=== PATIENT | male | born 1950 | race Caucasian/White ===

== ENCOUNTER 2017-11-06 17:51 | Emergency (ER) | payer MEDICARE ==
[2017-11-06] MEDS ORDERED: Sodium Chloride 0.9% 1000 ML 1,000 ML IV STA ×3 (18:14→20:47)
--- NOTE | 2017-11-06 18:18 | ERPHSYRPT ---
- History of Present Illness Historian: patient Exam Limitations: no limitations Patient Subjective Stated Complaint: pt co headache,nauea, loose stools for a couple days,and abd pain to lower abd. no fever Triage Nursing Assessment: pt alert, walked in, resp easy, skin w/d/p. abd tender to palpate, abd large and distended which pt states is normal for him Timing/Duration: day(s) (2 days) Activities at Onset: none Quality: cramping Abdominal Pain Onset Location: suprapubic Pain Radiation: no radiation Severity of Pain-Max: moderate Severity of Pain-Current: mild Associated Symptoms: diarrhea, headache, nausea, No back, No chest pain, No diaphoresis, No fever/chills, No fatigue, No heartburn, No loss of appetite, No neck pain, No rash, No shortness of breath, No syncope, No testicular pain, No vomiting Previous symptoms: no prior history Hx Tetanus, Diphtheria Vaccination/Date Given: No Hx Influenza Vaccination/Date Given: No Hx Pneumococcal Vaccination/Date Given: No Immunizations Up to Date: Yes <JOSÉ ANTONIO NORTON - Last Filed: 11/06/17 19:36> <SUNIL LOMELI - Last Filed: 11/06/17 23:25> - History of Present Illness Time Seen by Provider: 11/06/17 18:11 Physician History: 67-year-old white male arrives with complaint of lower abdominal pain loose stools nausea symptoms since 2 days Past medical history includes hyperlipidemia high blood pressure. Past surgical history includes hernia repair. (JOSÉ ANTONIO NORTON) Allergies/Adverse Reactions: No Known Drug Allergies Allergy (Verified 11/06/17 18:07) Home Medications: Valsartan/Hydrochlorothiazide [Diovan Hct 160-12.5 mg Tab] 1 ea DAILY 11/06/17 [ History] - Review of Systems Constitutional: No Fever, No Chills Eyes: No Symptoms Ears, Nose, & Throat: No Symptoms Respiratory: No Cough, No Dyspnea Cardiac: No Chest Pain, No Edema, No Syncope Abdominal/Gastrointestinal: Abdominal Pain, Nausea, Diarrhea, No Vomiting, No Constipation, No Hematemesis, No Hematochezia, No Melena, No Dysphagia, No Appetite Changes Genitourinary Symptoms: No Dysuria Musculoskeletal: No Back Pain, No Neck Pain Skin: No Rash Neurological: No Dizziness, No Focal Weakness, No Sensory Changes Psychological: No Symptoms Endocrine: No Symptoms All Other Systems: Reviewed and Negative <JOSÉ ANTONIO NORTON - Last Filed: 11/06/17 19:36> - Past Medical History Pertinent Past Medical History: Yes Neurological History: No Pertinent History ENT History: No Pertinent History Cardiac History: High Cholesterol, Hypertension Respiratory History: No Pertinent History Endocrine Medical History: No Pertinent History Musculoskeletal History: No Pertinent History GI Medical History: No Pertinent History History: No Pertinent History Psycho-Social History: No Pertinent History Male Reproductive Disorders: No Pertinent History - Past Surgical History Past Surgical History: Yes Neuro Surgical History: No Pertinent History Respiratory: No Pertinent History Gastrointestinal: Hernia Repair Male Surgical History: No Pertinent History - Social History Smoking Status: Former smoker Exposure to second hand smoke: No Drug Use: none Patient Lives Alone: No <ERROLJOSÉ ANTONIO MARIUSZ - Maurice Filed: 11/06/17 19:36> - Physical Exam General Appearance: no apparent distress, alert Eye Exam: PERRL/EOMI, eyes nml inspection Ears, Nose, Throat Exam: normal ENT inspection, pharynx normal, moist mucous membranes Neck Exam: normal inspection, non-tender, supple, full range of motion Respiratory Exam: normal breath sounds, lungs clear, No respiratory distress Cardiovascular Exam: regular rate/rhythm, normal heart sounds Gastrointestinal/Abdomen Exam: soft, normal bowel sounds, No tenderness, No mass Rectal Exam: normal exam Back Exam: normal inspection, normal range of motion, No CVA tenderness, No vertebral tenderness Extremity Exam: normal inspection, normal range of motion, pelvis stable Neurologic Exam: alert, oriented x 3, cooperative, 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, normal mood/affect, nml cerebellar function, sensation nml, No motor deficits Skin Exam: normal color, warm, dry SpO2 Interpretation: normal (92%) SpO2: 92 <JOSÉ ANTONIO NORTON - Filed: 11/06/17 19:36> - Nursing Vital Signs Nursing Vital Signs: Initial Vital Signs Temperature 100.3 F 11/06/17 18:01 Pulse Rate 100 H 11/06/17 18:01 Respiratory Rate 18 11/06/17 18:01 Blood Pressure 130/82 11/06/17 18:01 O2 Sat by Pulse Oximetry 92 L 11/06/17 18:01 Pain Scale Pain Intensity 3 - Course Nursing assessment & vital signs reviewed: Yes EKG Interpreted by Me: RATE (119 bpm), Sinus Tach, NORMAL AXIS, Other (EKG: Sinus tachycardia 119 beats per minute min normal axis complete right bundle block, no acute ST or T wave changes no old EKG for comparison) <JOSÉ ANTONIO NORTON - Last Filed: 11/06/17 19:36> Ordered Tests: Active Orders 24 hr Category Date Time Status EKG-ER Only STAT Care 11/06/17 18:18 Active IV Insertion STAT Care 11/06/17 18:14 Active ABDOMEN AND PELVIS W/0 CONTRAS [CT] Stat Exams 11/06/17 20:00 Taken CHEST 2 VIEWS (PA AND LAT) Stat Exams 11/06/17 20:47 Taken HEAD WITHOUT CONTRAST [CT] Stat Exams 11/06/17 20:47 Taken AMYLASE Stat Lab 11/06/17 18:15 Completed BNP [NT PRO BNP] Stat Lab 11/06/17 18:15 Completed CBC W DIFF Stat Lab 11/06/17 18:15 Completed CMP Stat Lab 11/06/17 18:15 Completed LIPASE Stat Lab 11/06/17 18:15 Completed Lactic Acid Stat Lab 11/06/17 18:30 Completed Occult Blood,Stool Other Stat Lab 11/06/17 19:30 Completed TROPONIN Q3H Lab 11/06/17 20:00 Completed TROPONIN Q3H Lab 11/06/17 23:15 Received UA W/RFX UR CULTURE Stat Lab 11/06/17 19:30 Uncollected Medication Summary Generic Name Dose Route Start Last Admin Trade Name Freq PRN Reason Stop Dose Admin Levofloxacin/Dextrose 750 mg in 150 mls @ 100 mls/hr 11/06/17 22:09 11/06/17 22:58 Levofloxacin 750mg/150ml D5w IV 11/06/17 23:38 100 mls/hr STAT STA Administration Discontinued Medications Generic Name Dose Route Start Last Admin Trade Name Freq PRN Reason Stop Dose Admin Acetaminophen 1,000 mg 11/06/17 20:01 11/06/17 20:13 Tylenol Extra Strength 500 Mg PO 11/06/17 20:02 1,000 mg STAT STA Administration Acetaminophen Confirm 11/06/17 20:10 Tylenol Extra Strength 500 Mg Administered 11/06/17 20:11 Dose 1,000 mg .ROUTE .STK-MED ONE Aspirin 325 mg 11/07/17 10:00 Ecotrin 325 Mg PO 11/07/17 10:01 ONCE ONE Aspirin 324 mg 11/06/17 22:10 11/06/17 22:12 Baby Aspirin 81 Mg Chew PO 11/06/17 22:11 324 mg STAT ONE Administration Sodium Chloride 1,000 mls @ 999 mls/hr 11/06/17 18:14 11/06/17 19:47 Sodium Chloride 0.9% 1000 Ml IV 11/06/17 19:14 Infused .Q1H1M STA Infusion Sodium Chloride 1,000 mls @ 999 mls/hr 11/06/17 18:16 11/06/17 22:23 Sodium Chloride 0.9% 1000 Ml IV 11/06/17 19:16 Infused .Q1H1M STA Infusion Sodium Chloride Confirm 11/06/17 18:22 Sodium Chloride 0.9% 1000 Ml Administered 11/06/17 18:23 Dose 1,000 mls @ ud .ROUTE .STK-MED ONE Sodium Chloride Confirm 11/06/17 19:12 Sodium Chloride 0.9% 1000 Ml Administered 11/06/17 19:13 Dose 1,000 mls @ ud .ROUTE .STK-MED ONE Sodium Chloride 1,000 mls @ 999 mls/hr 11/06/17 20:47 11/06/17 22:48 Sodium Chloride 0.9% 1000 Ml IV 11/06/17 21:47 999 mls/hr .Q1H1M STA Administration Sodium Chloride Confirm 11/06/17 21:22 Sodium Chloride 0.9% 1000 Ml Administered 11/06/17 21:23 Dose 1,000 mls @ ud .ROUTE .STK-MED ONE Metronidazole 500 mg in 100 mls @ 200 mls/hr 11/06/17 22:09 11/06/17 22:15 Flagyl 500 Mg Ivpb IV 11/06/17 22:38 200 mls/hr STAT STA Administration Metronidazole Confirm 11/06/17 22:14 Flagyl 500 Mg Ivpb Administered 11/06/17 22:15 Dose 500 mg in 100 mls @ ud IV .STK-MED ONE Levofloxacin/Dextrose Confirm 11/06/17 22:54 Levofloxacin 750mg/150ml D5w Administered 11/06/17 22:55 Dose 750 mg in 150 mls @ ud IV .STK-MED ONE Ondansetron HCl 4 mg 11/06/17 20:00 11/06/17 20:03 Zofran 4 Mg/2 Ml Vial IV 11/06/17 20:01 4 mg STAT ONE Administration Ondansetron HCl Confirm 11/06/17 20:02 Zofran 4 Mg/2 Ml Vial Administered 11/06/17 20:03 Dose 4 mg .ROUTE .STK-MED ONE Potassium Bicarbonate 50 meq 11/06/17 19:40 11/06/17 19:57 K-Lyte 25 Meq PO 11/06/17 19:41 50 meq STAT ONE Administration Potassium Bicarbonate Confirm 11/06/17 19:54 K-Lyte 25 Meq Administered 11/06/17 19:55 Dose 50 meq .ROUTE .STK-MED ONE Potassium Chloride Confirm 11/06/17 19:51 Klor Con 10 Meq Administered 11/06/17 19:52 Dose 50 meq PO .STK-MED ONE Lab/Rad Data: Laboratory Result Diagrams 11/06/17 18:15 11/06/17 18:15 Laboratory Results 11/06/17 11/06/17 11/06/17 Range/Units 20:00 19:30 18:30 WBC (4.0-10.5) K/mm3 RBC (4.1-5.6) M/mm3 Hgb (12.5-18.0) gm/dl Hct (42-50) % MCV (78-100) fl MCH (26-32) pg MCHC (32-36) g/dl RDW (11.5-14.0) % Plt Count (150-450) K/mm3 MPV (6-9.5) fl Gran % (36.0-66.0) % Eos # (Auto) (0-0.5) Absolute Lymphs (auto) (1.0-4.6) Absolute Monos (auto) (0.0-1.3) Lymphocytes % (24.0-44.0) % Monocytes % (0.0-12.0) % Eosinophils % (0.00-5.0) % Basophils % (0.0-0.4) % Absolute Granulocytes (1.4-6.9) Basophils # (0-0.4) Sodium (137-145) mmol/L Potassium (3.5-5.1) mmol/L Chloride (98-107) mmol/L Carbon Dioxide (22-30) mmol/L Anion Gap (5-15) MEQ/L BUN (9-20) mg/dL Creatinine (0.66-1.25) mg/dL Estimated GFR ML/MIN Glucose (74-106) mg/dL Lactic Acid 1.3 (0.4-2.0) Calcium (8.4-10.2) mg/dL Total Bilirubin (0.2-1.3) mg/dL AST (17-59) U/L ALT (0-50) U/L Alkaline Phosphatase (38-126) U/L Troponin I 0.039 H* (0.000-0.034) ng/mL NT-Pro-B Natriuret Pep (0-900) pg/mL Serum Total Protein (6.3-8.2) g/dL Albumin (3.5-5.0) g/dL Amylase (30-110) U/L Lipase (23-300) U/L Stool Occult Blood NEGATIVE (Negative) 11/06/17 11/06/17 11/06/17 Range/Units 18:15 18:15 18:15 WBC 11.5 H (4.0-10.5) K/mm3 RBC 5.08 (4.1-5.6) M/mm3 Hgb 16.0 (12.5-18.0) gm/dl Hct 46.6 (42-50) % MCV 91.7 (78-100) fl MCH 31.5 (26-32) pg MCHC 34.3 (32-36) g/dl RDW 14.9 H (11.5-14.0) % Plt Count 196 (150-450) K/mm3 MPV 10.0 H (6-9.5) fl Gran % 84.4 H (36.0-66.0) % Eos # (Auto) 0.01 (0-0.5) Absolute Lymphs (auto) 1.00 (1.0-4.6) Absolute Monos (auto) 0.76 (0.0-1.3) Lymphocytes % 8.7 L (24.0-44.0) % Monocytes % 6.6 (0.0-12.0) % Eosinophils % 0.1 (0.00-5.0) % Basophils % 0.2 (0.0-0.4) % Absolute Granulocytes 9.67 H (1.4-6.9) Basophils # 0.02 (0-0.4) Sodium 139 (137-145) mmol/L Potassium 3.1 L (3.5-5.1) mmol/L Chloride 100 (98-107) mmol/L Carbon Dioxide 26 (22-30) mmol/L Anion Gap 16.5 H (5-15) MEQ/L BUN 33 H (9-20) mg/dL Creatinine 1.95 H (0.66-1.25) mg/dL Estimated GFR 36.4 ML/MIN Glucose 136 H (74-106) mg/dL Lactic Acid (0.4-2.0) Calcium 8.3 L (8.4-10.2) mg/dL Total Bilirubin 1.30 (0.2-1.3) mg/dL AST 20 (17-59) U/L ALT 17 (0-50) U/L Alkaline Phosphatase 107 (38-126) U/L Troponin I (0.000-0.034) ng/mL NT-Pro-B Natriuret Pep 605 (0-900) pg/mL Serum Total Protein 7.1 (6.3-8.2) g/dL Albumin 4.1 (3.5-5.0) g/dL Amylase < 30 L (30-110) U/L Lipase 11 L (23-300) U/L Stool Occult Blood (Negative) - Progress Progress: improved <JOSÉ ANTONIO NORTON - Last Filed: 11/06/17 19:36> <SUNIL LOMELI - Last Filed: 11/06/17 23:25> - Progress Progress Note: 11/06/17 19:34 67-year-old white male arrives with complaint of loose stools for 3 days states he's had a headache for several months states she's had some nausea. states she's been giving the patient Imodium. Patient really nontender on palpation. Patient was EKG that shows sinus tachycardia 119 beats per minute normal axis complete right bundle-branch block no acute ST or T wave changes noted no old EKGs for comparison's. Patient's vitals are stable patient is noted to have a potassium of 3.1 amylase and lipase are within normal limits white count is 11.5 hemoglobin 16 hematocrit 46.6 Patient's states he's had some red stool I did a rectal exam he has no obvious blood occult has been sent 2 L of normal saline IV have been ordered he is receive the first liter. Will order 50 mEq of potassium orally. Because of shift change Dr. Lomeli will be assuming care of this patient I have discussed this with him. (JOSÉ ANTONIO NORTON) 11/06/17 22:50 After re-evaluation, patient admits to having mid abdominal pain and has had 2 episodes of diarrhea while in the ER. Pt also admits to headache but denies any chest pain or shortness of breath. Pt also has been having SBP in the 90's after receiving 2 liters of NS fluids. The CT scan abd/pelvis shows an acute diverticulitis and the CT scan head shows a left frontal sinusitis. The troponin is slightly elevated at 0.039 and the patient has a RBBB. Pt was given ASA 324mg and will be started on levaquin and flagyl for the diverticulitis. Pt will require admission for elevated troponin and diverticulitis. 11/06/17 23:[address] Yao who prefers that the patient is transferred to [place]. The family and patient want him transferred to [facility]. 11/06/17 23:24 Pt has been accepted with Dr Headley at [facility]. (SUNIL LOMELI) <JOSÉ ANTONIO NORTON - Last Filed: 11/06/17 19:36> - Departure Time of Disposition: 23:24 Departure Disposition: Transfer Critical Care Time: Yes Critical Care Time(excluding separately billable procedures): 75-104 minutes <SUNIL LOMELI - Last Filed: 11/06/17 23:25> - Departure Clinical Impression: Elevated troponin, Diverticulitis Sinusitis Qualifiers: Sinusitis location: frontal Chronicity: acute Recurrence: non-recurrent Qualified Code(s): J01.10 - Acute frontal sinusitis, unspecified Condition: Fair Referrals: BREEZY MEJIA MD [Primary Care Provider] -
[2017-11-06] MEDS ORDERED: Sodium Chloride 0.9% 1000 ML 1,000 ML ONE ×3 (18:22→21:22)
[2017-11-06 18:42] LABS: BASOPHIL % 0.2 % (0.0-0.4); Basophil (Absolute #) 0.02 (0-0.4); Eosinophil % 0.1 % (0.00-5.0); Eosinophil (Absolute #) 0.01 (0-0.5); Granulocyte Absolute (ANC) 9.67 (1.4-6.9); Granulocytes % 84.4 % (36.0-66.0); Hematocrit 46.6 % (42-50); Lymphocytes % 8.7 % (24.0-44.0); Mean Cell Volume 91.7 fl (78-100); Mean Corpuscular Hemoglobin 31.5 pg (26-32); Mean Corpuscular Hgb Concent. 34.3 g/dl (32-36); Monocyte (Absolute #) 0.76 (0.0-1.3); Monocytes % 6.6 % (0.0-12.0); Platelet Count 196 K/mm3 (150-450); Red Blood Count 5.08 M/mm3 (4.1-5.6); Red Cell Distribution Width 14.9 % (11.5-14.0); White Blood Count 11.5 K/mm3 (4.0-10.5)
[2017-11-06 18:59] LABS: ALBUMIN 4.1 g/dL (3.5-5.0); ALKALINE PHOSPHATASE 107 U/L (38-126); AMYLASE < 30 U/L (30-110); ANION GAP 16.5 MEQ/L (5-15); BLOOD UREA NITROGEN 33 mg/dL (9-20); CHLORIDE 100 mmol/L (98-107); Calcium 8.3 mg/dL (8.4-10.2); Carbon Dioxide 26 mmol/L (22-30); Creatinine 1 1.95 mg/dL (0.66-1.25); Glucose 136 mg/dL (74-106); LIPASE 11 U/L (23-300); Potassium 3.1 mmol/L (3.5-5.1); SGOT/AST 20 U/L (17-59); SGPT/ALT 17 U/L (0-50); SODIUM 139 mmol/L (137-145); Total Protein 7.1 g/dL (6.3-8.2)
[2017-11-06] MEDS ORDERED: K-LYTE 25 MEQ PO ONE (19:40)
[2017-11-06] MEDS ORDERED: Klor Con 10 MEQ PO ONE (19:51)
[2017-11-06] MEDS ORDERED: K-LYTE 25 MEQ ONE (19:54)
[2017-11-06] MEDS ORDERED: Zofran 4 MG/2 ML VIAL IV ONE (20:00)
[2017-11-06] MEDS ORDERED: TYLENOL EXTRA STRENGTH 500 MG PO STA (20:01)
[2017-11-06] MEDS ORDERED: Zofran 4 MG/2 ML VIAL ONE (20:02)
[2017-11-06] MEDS ORDERED: TYLENOL EXTRA STRENGTH 500 MG ONE (20:10)
[2017-11-06] MEDS ORDERED: LEVOFLOXACIN 750MG/150ML D5W 750 MG/150 ML BAG IV STA (22:09)
[2017-11-06] MEDS ORDERED: FLAGYL 500 MG IVPB 500 MG/100 ML BAG IV STA (22:09)
[2017-11-06] MEDS ORDERED: BABY ASPIRIN 81 MG CHEW PO ONE (22:10)
[2017-11-06] MEDS ORDERED: FLAGYL 500 MG IVPB 500 MG/100 ML BAG IV ONE (22:14)
[2017-11-06 22:45] VITALS: O2SAT 97
[2017-11-06] MEDS ORDERED: LEVOFLOXACIN 750MG/150ML D5W 750 MG/150 ML BAG IV ONE (22:54)
[2017-11-06 22:55] VITALS: PULSE 97
[2017-11-07] MEDS ORDERED: Sodium Chloride 0.9% 1000 ML 1,000 ML ONE (00:07)
[2017-11-07 00:08] LABS: 027 TOX PROD PRESUMPTIVE NEGATIVE (NEGATIVE); TOXIGENIC C. DIFF ORG NEGATIVE (NEGATIVE)
[2017-11-07] MEDS ORDERED: Sodium Chloride 0.9% 1000 ML 1,000 ML IV STA (00:11)
[2017-11-07 00:24] VITALS: BP 82/58
[2017-11-07] MEDS ORDERED: BABY ASPIRIN 81 MG CHEW ONE (06:20)
[2017-11-07] MEDS ORDERED: Ecotrin 325 MG PO ONE (10:00)
--- NOTE | 2017-11-07 11:50 | XRAY ---
Exam: Two-view chest from 11/06/2017. Comparison: None. Indication: 67-year-old male with low oxygen saturation. Findings: Upright PA and lateral chest films are submitted for evaluation. There is mild hyperinflation of the lungs with some flattening of the hemidiaphragms. The transverse heart size appears normal. There is mild tortuosity of the thoracic aorta. The remainder of the kam and mediastinal structures is unremarkable. Curvilinear focal discoid atelectasis or scarring is seen at the lateral right lung base. There is also minimal pleural reaction within the lateral aspect of the minor fissure on the right. There is a suggestion of 3 small calcified granulomas within the peripheral right upper lung field. The right costophrenic angle is blunted, perhaps due to pleural thickening and scarring. No acute infiltrates, central vascular congestion, pneumothorax, or pleural fluid is seen. Mild biapical pleural thickening is seen. Mild lower thoracic spondylosis is evident. Impression: 1. There is mild hyperinflation of the lungs with some flattening of the hemidiaphragms on the lateral radiograph. Correlate clinically regarding COPD. 2. Chronic changes are seen within the right lung, as discussed above. No acute cardiopulmonary disease is seen.
--- NOTE | 2017-11-07 12:21 | XRAY ---
Exam: CT of the head without IV contrast from 11/06/2017. CTDI: 70.48 Comparison: None. Indication: 67-year-old male with pain/headache. Elevated white blood cell count. Technique: Non-IV contrast axial images were obtained through the brain. Reconstructed coronal and sagittal images were created and reviewed. Findings: The ventricles appear of normal size. No focal mass effect or midline shift is seen. There is no acute intracranial bleed or abnormal extra-axial fluid collection. Subtle bilateral periventricular and subcortical white matter changes are seen, likely due to chronic microvascular changes in this 67-year-old patient. I see no low attenuation lesion to suggest an acute or subacute territorial infarct. Mild vascular calcification is seen within the internal carotid arteries within the carotid siphons. The cortical sulci and basilar cisterns appear unremarkable. The calvarium of the skull appears intact. There is a small spur pointing toward the left within the posterior nasal septum. The posterior aspect of the nasal septum is mildly deviated toward the left. I note some bubbly soft tissue or fluid density within the left frontal sinus and frontal-ethmoid recess. Consider sinusitis. Mild scattered mucosal thickening is also seen within the ethmoid sinuses. There is scant mucosal thickening at the lateral margin and posterior margin of the right maxillary sinus on image #1. The mastoid air cells appear clear. Impression: 1. No acute intracranial bleed or other acute intracranial process is seen. 2. There is some focal bubbly soft tissue/fluid density within the left frontal sinus and left frontal-ethmoid recess which might represent acute sinusitis. Correlate clinically. I also note some scattered mucosal thickening within ethmoid sinus complex bilaterally. No other air-fluid levels are seen.
== END 2017-11-07 00:18 | disposition short-term general hospital (02) ==
LOC: ED 17:51
DX: R77.8 Other specified abnormalities of plasma proteins (principal); K57.92 Diverticulitis of intestine, part unspecified, without perforation or abscess without bleeding; R51 Headache; R19.7 Diarrhea, unspecified; J01.10 Acute frontal sinusitis, unspecified; R10.9 Unspecified abdominal pain; I45.10 Unspecified right bundle-branch block
CPT/HCPCS: 36000; 36415; 70450; 71046; 74176; 80053; 82150; 82272; 83605; 83690; 83880; 84484; 85025; 87493; 93005; 96360; 96361; 96365; 96367; 96374; 99285; J1956; J2405; A9270-GY

== ENCOUNTER 2021-03-19 14:57 | Inpatient (IN) | payer MEDICARE ==
[2021-03-19] MEDS ORDERED: Zofran 4 MG/2 ML VIAL IV ONE (15:36)
[2021-03-19] MEDS ORDERED: MORPHINE SULFATE 4 MG INJ IV ONE (15:36)
[2021-03-19] MEDS ORDERED: Zofran 4 MG/2 ML VIAL ONE (15:40)
[2021-03-19] MEDS ORDERED: MORPHINE SULFATE 4 MG INJ ONE (15:41)
[2021-03-19] MEDS ORDERED: Sodium Chloride 0.9% 1000 ML 1,000 ML ONE (15:41)
[2021-03-19] MEDS ORDERED: Sodium Chloride 0.9% 1000 ML 1,000 ML IV SCH (15:45)
[2021-03-19 15:48] LABS: Absolute Neutrophil Ct (ANC) 11.81 (1.4-6.9); BASOPHIL % 0.1 % (0.0-0.4); Basophil (Absolute #) 0.02 (0-0.4); Eosinophil % 0.1 % (0.00-5.0); Eosinophil (Absolute #) 0.01 (0-0.5); Hematocrit 53.6 % (42-50); Hemoglobin 17.1 gm/dl (12.5-18.0); Lymphocyte (Absolute #) 1.82 (1.0-4.6); Lymphocytes % 12.2 % (24.0-44.0); Mean Cell Volume 94.9 fl (78-100); Mean Corpuscular Hemoglobin 30.3 pg (26-32); Mean Corpuscular Hgb Concent. 31.9 g/dl (32-36); Monocyte (Absolute #) 1.26 (0.0-1.3); Monocytes % 8.4 % (0.0-12.0); Neutrophil % 79.2 % (36.0-66.0); Platelet Count 302 K/mm3 (150-450); Red Blood Count 5.65 M/mm3 (4.1-5.6); Red Cell Distribution Width 14.9 % (11.5-14.0); White Blood Count 14.9 K/mm3 (4.0-10.5)
[2021-03-19 16:05] LABS: ALBUMIN 4.8 g/dL (3.5-5.0); ALKALINE PHOSPHATASE 123 U/L (38-126); BLOOD UREA NITROGEN 25 mg/dL (9-20); CHLORIDE 97 mmol/L (98-107); Calcium 9.7 mg/dL (8.4-10.2); Carbon Dioxide 34 mmol/L (22-30); Creatinine 1 1.14 mg/dL (0.66-1.25); EST GLOMERULAR FILTRATION RATE > 60.0 ML/MIN; Glucose 135 mg/dL (74-106); LIPASE 41 U/L (23-300); Potassium 4.2 mmol/L (3.5-5.1); SGOT/AST 32 U/L (17-59); SGPT/ALT 32 U/L (0-50); SODIUM 140 mmol/L (137-145); Total Protein 8.4 g/dL (6.3-8.2)
--- NOTE | 2021-03-19 16:11 | ERPHSYRPT ---
- History of Present Illness Time Seen by Provider: 03/19/21 14:58 Historian: patient Exam Limitations: no limitations Patient Subjective Stated Complaint: pt here for abd pain and vomiting since last night, pt has hx of diverticulitis, Triage Nursing Assessment: pt alert, resp easy, skin w/d/p, face mask in place, abd large and distended , able to undress self Physician History: 70 years old male with a history of hypertension, hyperlipidemia, diverticulitis presented in the ER with abdominal distention and pain since yesterday moderate intensity, dull aching to sharp, more with palpation and movements and no sig nificant relieving factors. Reports associated nausea and one episode of vomiting without diarrhea or constipation. Reports having similar symptoms in the past with diverticulitis. No fever or chills reported. Timing/Duration: yesterday, constant, gradual onset, worse Activities at Onset: rest Quality: dullness Abdominal Pain Onset Location: generalized abdomen Pain Radiation: LLQ Severity of Pain-Max: moderate Severity of Pain-Current: moderate Modifying Factors: Worsens With: movement, palpation, vomiting Associated Symptoms: nausea, vomiting Allergies/Adverse Reactions: No Known Drug Allergies Allergy (Verified 03/19/21 15:07) Home Medications: Atorvastatin Calcium [Lipitor] 1 ea DAILY 03/19/21 [History] Hydrochlorothiazide 25 mg [hydroDIURIL 25 MG] 1 ea DAILY 03/19/21 [History] Metoprolol Succinate 50 mg [Toprol Xl 50 MG] 1 ea DAILY 03/19/21 [History] Hx Tetanus, Diphtheria Vaccination/Date Given: No Hx Influenza Vaccination/Date Given: No Hx Pneumococcal Vaccination/Date Given: No Immunizations Up to Date: Yes Travel Risk - International Travel Have you traveled outside of the country in past 3 weeks: No - Coronavirus Screening Are you exhibiting any of the following symptoms?: No - Vaccine Status Have you recieved a Covid-19 vaccination: Yes Risk Intern: Unknown - Vaccination Dates Date of 2cond Vaccination (if applicable): ? Dates if Unknown: ? - Review of Systems Constitutional: No Symptoms Eyes: No Symptoms Ears, Nose, & Throat: No Symptoms Respiratory: No Symptoms Cardiac: No Symptoms Abdominal/Gastrointestinal: Abdominal Pain, Nausea, Vomiting Genitourinary Symptoms: No Symptoms Musculoskeletal: No Symptoms Skin: No Symptoms Neurological: No Symptoms Psychological: No Symptoms Endocrine: No Symptoms Hematologic/Lymphatic: No Symptoms Immunological/Allergic: No Symptoms - Past Medical History Pertinent Past Medical History: Yes Neurological History: No Pertinent History ENT History: No Pertinent History Cardiac History: High Cholesterol, Hypertension Respiratory History: No Pertinent History Endocrine Medical History: No Pertinent History Musculoskeletal History: No Pertinent History GI Medical History: Diverticulitis History: No Pertinent History Psycho-Social History: No Pertinent History Male Reproductive Disorders: No Pertinent History - Past Surgical History Past Surgical History: Yes Neuro Surgical History: No Pertinent History Respiratory: No Pertinent History Gastrointestinal: Hernia Repair Male Surgical History: No Pertinent History - Social History Smoking Status: Former smoker Exposure to second hand smoke: No Drug Use: none Patient Lives Alone: No - Nursing Vital Signs Nursing Vital Signs: Initial Vital Signs Pulse Rate 96 H 03/19/21 16:00 Respiratory Rate 18 03/19/21 16:00 Blood Pressure 107/68 03/19/21 16:00 O2 Sat by Pulse Oximetry 88 L 03/19/21 16:00 Pain Scale Pain Intensity 0 - Physical Exam General Appearance: no apparent distress, alert Eye Exam: PERRL/EOMI, eyes nml inspection Ears, Nose, Throat Exam: normal ENT inspection, pharynx normal Neck Exam: normal inspection, non-tender, supple, full range of motion Respiratory Exam: normal breath sounds, lungs clear Cardiovascular Exam: regular rate/rhythm, normal heart sounds Gastrointestinal/Abdomen Exam: tenderness (Generalized), distention, guarding (Minimal guarding generalized), No normal bowel sounds, No rebound Back Exam: normal inspection, normal range of motion Extremity Exam: normal inspection, normal range of motion Neurologic Exam: alert, oriented x 3, cooperative, want ad receiver II-XII nml as tested Skin Exam: normal color SpO2 Interpretation: normal SpO2: 96 O2 Delivery: Room Air Ordered Tests: Active Orders 24 hr Category Date Time Status IV Insertion STAT Care 03/19/21 15:36 Active Oxygen-ED Only Nasal Cannula 2 lpm Care 03/19/21 16:22 Active ABDOMEN AND PELVIS W CONTRAST [CT] Stat Exams 03/19/21 15:34 Completed CBC W DIFF Stat Lab 03/19/21 15:47 Completed CMP Stat Lab 03/19/21 15:47 Completed LIPASE Stat Lab 03/19/21 15:47 Completed Lactic Acid Stat Lab 03/19/21 15:33 Completed UA W/RFX UR CULTURE Stat Lab 03/19/21 16:00 Completed Medication Summary Generic Name Dose Route Start Last Admin Trade Name Kj PRN Reason Stop Dose Admin Sodium Chloride 1,000 mls @ 100 mls/hr 03/19/21 15:45 03/19/21 15:42 Sodium Chloride 0.9% 1000 Ml IV 04/18/21 15:44 100 mls/hr .Q10H DARIANA Administration Discontinued Medications Generic Name Dose Route Start Last Admin Trade Name Kj PRN Reason Stop Dose Admin Morphine Sulfate 4 mg 03/19/21 15:36 03/19/21 15:42 Morphine Sulfate 4 Mg/Ml Injection IV 03/19/21 15:37 4 mg STAT ONE Administration Morphine Sulfate Confirm 03/19/21 15:41 Morphine Sulfate 4 Mg/Ml Injection Administered 03/19/21 15:42 Dose 4 mg .ROUTE .STK-MED ONE Ondansetron HCl 4 mg 03/19/21 15:36 03/19/21 15:42 Ondansetron Hcl 4 Mg/2 Ml Vial IV 03/19/21 15:37 4 mg STAT ONE Administration Ondansetron HCl Confirm 03/19/21 15:40 Ondansetron Hcl 4 Mg/2 Ml Vial Administered 03/19/21 15:41 Dose 4 mg .ROUTE .STK-MED ONE Lab/Rad Data: Laboratory Result Diagrams 03/19/21 15:47 03/19/21 15:47 Laboratory Results 03/19/21 03/19/21 03/19/21 Range/Units 16:00 15:47 15:47 WBC 14.9 H (4.0-10.5) K/mm3 RBC 5.65 H (4.1-5.6) M/mm3 Hgb 17.1 (12.5-18.0) gm/dl Hct 53.6 H (42-50) % MCV 94.9 (78-100) fl MCH 30.3 (26-32) pg MCHC 31.9 L (32-36) g/dl RDW 14.9 H (11.5-14.0) % Plt Count 302 (150-450) K/mm3 MPV 10.0 (7.5-11.0) fl Gran % 79.2 H (36.0-66.0) % Eos # (Auto) 0.01 (0-0.5) Absolute Lymphs (auto) 1.82 (1.0-4.6) Absolute Monos (auto) 1.26 (0.0-1.3) Lymphocytes % 12.2 L (24.0-44.0) % Monocytes % 8.4 (0.0-12.0) % Eosinophils % 0.1 (0.00-5.0) % Basophils % 0.1 (0.0-0.4) % Absolute Granulocytes 11.81 H (1.4-6.9) Basophils # 0.02 (0-0.4) Sodium 140 (137-145) mmol/L Potassium 4.2 (3.5-5.1) mmol/L Chloride 97 L (98-107) mmol/L Carbon Dioxide 34 H (22-30) mmol/L Anion Gap 14.0 (5-15) MEQ/L BUN 25 H (9-20) mg/dL Creatinine 1.14 (0.66-1.25) mg/dL Estimated GFR > 60.0 ML/MIN Glucose 135 H (74-106) mg/dL Lactic Acid (0.4-2.0) Calcium 9.7 (8.4-10.2) mg/dL Total Bilirubin 2.00 H (0.2-1.3) mg/dL AST 32 (17-59) U/L ALT 32 (0-50) U/L Alkaline Phosphatase 123 (38-126) U/L Serum Total Protein 8.4 H (6.3-8.2) g/dL Albumin 4.8 (3.5-5.0) g/dL Lipase 41 (23-300) U/L Urine Color SIMON (YELLOW) Urine Appearance SLIGHTLY CLOUDY (CLEAR) Urine pH 5.0 (5-6) Ur Specific [address] 1.029 (1.005-1.025) Urine Protein 30 (Negative) Urine Ketones NEGATIVE (NEGATIVE) Urine Blood NEGATIVE (0-5) Alvino/ul Urine Nitrite NEGATIVE (NEGATIVE) Urine Bilirubin NEGATIVE (NEGATIVE) Urine Urobilinogen 2 (0-1) mg/dL Ur Leukocyte Esterase NEGATIVE (NEGATIVE) Urine WBC (Auto) 3-5 (0-5) /HPF Urine RBC (Auto) NONE (0-2) /HPF U Epithel Cells (Auto) RARE (FEW) /HPF Urine Bacteria (Auto) RARE (NEGATIVE) /HPF Urine Mucus (Auto) MANY (NEGATIVE) /HPF Urine Culture Reflexed NO (NO) Urine Glucose NEGATIVE (NEGATIVE) mg/dL 03/19/21 Range/Units 15:33 WBC (4.0-10.5) K/mm3 RBC (4.1-5.6) M/mm3 Hgb (12.5-18.0) gm/dl Hct (42-50) % MCV (78-100) fl MCH (26-32) pg MCHC (32-36) g/dl RDW (11.5-14.0) % Plt Count (150-450) K/mm3 MPV (7.5-11.0) fl Gran % (36.0-66.0) % Eos # (Auto) (0-0.5) Absolute Lymphs (auto) (1.0-4.6) Absolute Monos (auto) (0.0-1.3) Lymphocytes % (24.0-44.0) % Monocytes % (0.0-12.0) % Eosinophils % (0.00-5.0) % Basophils % (0.0-0.4) % Absolute Granulocytes (1.4-6.9) Basophils # (0-0.4) Sodium (137-145) mmol/L Potassium (3.5-5.1) mmol/L Chloride (98-107) mmol/L Carbon Dioxide (22-30) mmol/L Anion Gap (5-15) MEQ/L BUN (9-20) mg/dL Creatinine (0.66-1.25) mg/dL Estimated GFR ML/MIN Glucose (74-106) mg/dL Lactic Acid 1.9 (0.4-2.0) Calcium (8.4-10.2) mg/dL Total Bilirubin (0.2-1.3) mg/dL AST (17-59) U/L ALT (0-50) U/L Alkaline Phosphatase (38-126) U/L Serum Total Protein (6.3-8.2) g/dL Albumin (3.5-5.0) g/dL Lipase (23-300) U/L Urine Color (YELLOW) Urine Appearance (CLEAR) Urine pH (5-6) Ur Specific [address] (1.005-1.025) Urine Protein (Negative) Urine Ketones (NEGATIVE) Urine Blood (0-5) Alvino/ul Urine Nitrite (NEGATIVE) Urine Bilirubin (NEGATIVE) Urine Urobilinogen (0-1) mg/dL Ur Leukocyte Esterase (NEGATIVE) Urine WBC (Auto) (0-5) /HPF Urine RBC (Auto) (0-2) /HPF U Epithel Cells (Auto) (FEW) /HPF Urine Bacteria (Auto) (NEGATIVE) /HPF Urine Mucus (Auto) (NEGATIVE) /HPF Urine Culture Reflexed (NO) Urine Glucose (NEGATIVE) mg/dL - Progress Progress: improved, pain not gone completely, re-examined Progress Note: 03/19/21 17:40 70 years old is evaluated for abdominal pain and distention with nausea vomiting. Given fluids and pain medication, reevaluation feeling better. Work- up showed white count of almost 15, lactate closer to upper limit of normal and bilirubin 2.0 with mildly elevated BUN. Patient is feeling better on re evaluation but still have abdominal distention. Obtain CT abdomen pelvis with contrast which showed partial small bowel obstruction and no other acute findings. NG tube is placed in. We will keep patient n.p.o. and will continue with conservative management, discussed with Dr. Kennedy, reviewed history work-up and patient is accepted for admission. Discussed with : Steven Will see patient in: hospital (observation) Counseled pt/family regarding: lab results, diagnosis, rad results - Departure Departure Disposition: Observation Clinical Impression: Partial obstruction of small intestine Condition: Stable Critical Care Time: No Referrals: BREEZY MEJIA MD [Primary Care Provider] - Follow up/PCP as directed
[2021-03-19 16:31] LABS: Appearance SLIGHTLY CLOUDY (CLEAR); Bacteria RARE /HPF (NEGATIVE); Bilirubin NEGATIVE (NEGATIVE); Blood NEGATIVE Ery/ul (0-5); Epithelial Cells RARE /HPF (FEW); Glucose NEGATIVE (NEGATIVE); Ketones NEGATIVE (NEGATIVE); Leukocyte Esterase NEGATIVE (NEGATIVE); Mucus MANY /HPF (NEGATIVE); Nitrite NEGATIVE (NEGATIVE); Protein,Urine Dip 30 (Negative); Specific Gravity 1.029 (1.005-1.025); Urobilinogen 2 mg/dL (0-1)
--- NOTE | 2021-03-19 17:19 | XRAY ---
Indication: Pain. Obstruction. Multiple contiguous axial images obtained through the abdomen and pelvis using 80 cc Isovue 370 contrast. Comparison: November 06, 2017. Lung bases demonstrates grossly stable bibasilar subsegmental atelectasis/scarring and posterior right base calcified pleural plaquing. Heart borderline enlarged. Stomach and small bowel loops are now mildly fluid distended throughout. Small bowel loops distended up to 3.4 cm in diameter with transition point right mid abdomen favoring partial small bowel obstruction. Tiny free fluid presumed reactive but no free air. Ileum appears decompressed with normal bowel gas throughout the colon. Normal appendix. There remains scattered colonic diverticulosis again greatest in the sigmoid colon. Again incidental splenic calcified granulomas and cholecystectomy clips. Remaining liver, pancreas, spleen, adrenal glands, kidneys, ureters, and latter are unremarkable. There remains mild scattered aortoiliac calcifications. No AAA or pathological retroperitoneal lymphadenopathy. Osseous structures again demonstrates mild osteopenia and moderate/advanced multilevel thoracolumbar degenerative spondylosis. Stable large right and small left fatty inguinal hernias. Impression: 1. New partial distal small bowel obstruction as detailed. 2. Again incidental bibasilar atelectasis/scarring, right lung base calcified pleural plaquing, scattered colonic diverticulosis, bilateral fatty inguinal hernias, and chronic bony findings.
[2021-03-19] MEDS ORDERED: Ativan 2 MG/1 ML VIAL IV ONE (17:39)
[2021-03-19] MEDS ORDERED: Ativan 2 MG/1 ML VIAL ONE (17:40)
[2021-03-19] MEDS ORDERED: MORPHINE SULFATE 2 MG INJ IM ONE (18:11)
[2021-03-19] MEDS ORDERED: MORPHINE SULFATE 2 MG INJ ONE (18:18)
[2021-03-19 18:52] LABS: INFLUENZA A NEGATIVE (NEGATIVE); INFLUENZA B NEGATIVE (NEGATIVE); RESPIRATORY SYNCTIAL VIRUS NEGATIVE (Negative); SARS-CoV-2 Xpert Express NEGATIVE (NEGATIVE)
[2021-03-19] MEDS ORDERED: Zofran 4 MG/2 ML VIAL IV PRN (19:38)
[2021-03-19] MEDS: Sodium Chloride 0.9% W/ 20 mEq KCl/LITER 1,000 ML IV SCH (22:03)
[2021-03-20 05:40] LABS: Absolute Neutrophil Ct (ANC) 5.37 (1.4-6.9); BASOPHIL % 0.1 % (0.0-0.4); Basophil (Absolute #) 0.01 (0-0.4); Eosinophil % 0.8 % (0.00-5.0); Eosinophil (Absolute #) 0.06 (0-0.5); Hematocrit 46.3 % (42-50); Hemoglobin 14.2 gm/dl (12.5-18.0); Lymphocyte (Absolute #) 1.16 (1.0-4.6); Lymphocytes % 15.3 % (24.0-44.0); Mean Cell Volume 97.7 fl (78-100); Mean Corpuscular Hgb Concent. 30.7 g/dl (32-36); Mean Platelet Volume 9.9 fl (7.5-11.0); Monocyte (Absolute #) 0.97 (0.0-1.3); Monocytes % 12.8 % (0.0-12.0); Platelet Count 209 K/mm3 (150-450); Red Blood Count 4.74 M/mm3 (4.1-5.6); Red Cell Distribution Width 15.3 % (11.5-14.0); White Blood Count 7.6 K/mm3 (4.0-10.5)
[2021-03-20 05:54] LABS: ALBUMIN 3.4 g/dL (3.5-5.0); ALKALINE PHOSPHATASE 102 U/L (38-126); ANION GAP 11.3 MEQ/L (5-15); BLOOD UREA NITROGEN 28 mg/dL (9-20); CHLORIDE 103 mmol/L (98-107); Calcium 7.8 mg/dL (8.4-10.2); Carbon Dioxide 31 mmol/L (22-30); Creatinine 1 1.04 mg/dL (0.66-1.25); EST GLOMERULAR FILTRATION RATE > 60.0 ML/MIN; Glucose 104 mg/dL (74-106); Potassium 4.4 mmol/L (3.5-5.1); SGOT/AST 75 U/L (17-59); SGPT/ALT 85 U/L (0-50); SODIUM 141 mmol/L (137-145); Total Protein 5.8 g/dL (6.3-8.2)
[2021-03-20] MEDS: Sodium Chloride 0.9% W/ 20 mEq KCl/LITER 1,000 ML IV SCH ×3 (06:07→21:24)
--- NOTE | 2021-03-20 08:44 | XRAY ---
Indication: NG tube placement. Comparison: November 06, 2017. Portable chest demonstrates new NG tube tip in proximal stomach. Stable right base pleural thickening with fibrosis/scarring and tiny right lung calcified granulomas. Remaining lungs clear. Heart now enlarged. Bony thorax intact.
[2021-03-20] MEDS: hydroDIURIL 25 MG PO SCH (09:36)
[2021-03-20] MEDS: Toprol Xl 50 MG PO SCH (09:36)
[2021-03-20] MEDS: ZOCOR 20MG PO SCH (09:36)
[2021-03-20] MEDS: PROTONIX 40 MG IV IV SCH (09:37)
[2021-03-20] MEDS: Cozaar 50 MG PO SCH (09:38)
--- NOTE | 2021-03-20 09:41 | XRAY ---
Indication: Follow-up small bowel obstruction. Comparison: CT abdomen/pelvis one day earlier. KUB demonstrates new NG tube tip in stomach. Interval diminished air distended small bowel loops without focal bowel dilatation or free air. Again incidental cholecystotomy clips, contrasted urinary bladder, degenerative changes throughout spine, and old right 11 rib fracture.
[2021-03-20] MEDS ORDERED: NON-FORMULARY ITEM (Atorvastatin Calcium [Lipitor] 20 MG Tablet) PO SCH (10:00)
[2021-03-20] MEDS ORDERED: NON-FORMULARY ITEM (Losartan Potassium [Losartan Potassium] 100 MG Tablet) PO SCH (10:00)
[2021-03-20] MEDS: MORPHINE SULFATE 4 MG INJ IV PRN (17:59)
[2021-03-20] MEDS: DESYREL 50 MG PO SCH (21:24)
[2021-03-21] MEDS: Sodium Chloride 0.9% W/ 20 mEq KCl/LITER 1,000 ML IV SCH ×3 (05:12→21:07)
[2021-03-21] MEDS: MORPHINE SULFATE 4 MG INJ IV PRN (06:33)
[2021-03-21 06:52] LABS: Absolute Neutrophil Ct (ANC) 5.67 (1.4-6.9); BASOPHIL % 0.1 % (0.0-0.4); Basophil (Absolute #) 0.01 (0-0.4); Eosinophil % 1.9 % (0.00-5.0); Eosinophil (Absolute #) 0.16 (0-0.5); Hematocrit 42.1 % (42-50); Hemoglobin 13.2 gm/dl (12.5-18.0); Lymphocyte (Absolute #) 1.51 (1.0-4.6); Lymphocytes % 18.3 % (24.0-44.0); Mean Cell Volume 97.7 fl (78-100); Mean Corpuscular Hemoglobin 30.6 pg (26-32); Mean Corpuscular Hgb Concent. 31.4 g/dl (32-36); Mean Platelet Volume 9.9 fl (7.5-11.0); Monocyte (Absolute #) 0.88 (0.0-1.3); Monocytes % 10.7 % (0.0-12.0); Platelet Count 191 K/mm3 (150-450); Red Blood Count 4.31 M/mm3 (4.1-5.6); White Blood Count 8.2 K/mm3 (4.0-10.5)
[2021-03-21 07:14] LABS: ALBUMIN 3.4 g/dL (3.5-5.0); ALKALINE PHOSPHATASE 91 U/L (38-126); ANION GAP 9.9 MEQ/L (5-15); BLOOD UREA NITROGEN 20 mg/dL (9-20); CHLORIDE 104 mmol/L (98-107); Calcium 7.7 mg/dL (8.4-10.2); Carbon Dioxide 29 mmol/L (22-30); EST GLOMERULAR FILTRATION RATE > 60.0 ML/MIN; Glucose 75 mg/dL (74-106); SGOT/AST 35 U/L (17-59); SGPT/ALT 56 U/L (0-50); SODIUM 139 mmol/L (137-145); Total Protein 6.1 g/dL (6.3-8.2)
--- NOTE | 2021-03-21 07:48 | XRAY ---
Indication: Follow-up small bowel obstruction. Comparison: One day earlier. KUB nonacute and nonobstructed again with NG tube tip in stomach and cholecystectomy clips. Solid organs unremarkable. Stable osteopenia, multilevel degenerative spondylosis, and old right 11 rib fracture. No new/acute abnormalities.
[2021-03-21] MEDS: PROTONIX 40 MG IV IV SCH (10:35)
[2021-03-21] MEDS: ZOCOR 20MG PO SCH (10:36)
[2021-03-21] MEDS: Cozaar 50 MG PO SCH (10:36)
[2021-03-21] MEDS: hydroDIURIL 25 MG PO SCH (10:36)
[2021-03-21] MEDS: Toprol Xl 50 MG PO SCH (10:36)
--- NOTE | 2021-03-21 13:17 | PCM.NOTE ---
Date and Time: 03/21/21 1312 Subjective Assessment: Pt still having abd pain, rates 2-3/10 at rest but notes worse when he's up on it. Still has NG tube in place. - Review of Systems Constitutional: No Fever Abdominal/Gastrointestinal: Abdominal Pain, No Vomiting Objective Exam General Appearance: no apparent distress, obese Neurologic Exam: alert, cooperative Skin Exam: normal color, warm, dry, No rash Eye Exam: other (R eye with yellow exudate, mild erythema) Ears, Nose, Throat Exam: moist mucous membranes Neck Exam: normal inspection Respiratory Exam: normal breath sounds, lungs clear, No crackles/rales, No rhonchi, No wheezing Cardiovascular Exam: regular rate/rhythm, murmur (II/ sys murmur) Gastrointestinal/Abdomen Exam: soft, normal bowel sounds (all 4 quadrants), tenderness (LUQ, suprapubic), distention, No mass, No guarding, No rebound Back Exam: normal inspection, No rash OBJECTIVE DATA Vital Signs: Vital Signs - 24 hr Temp Pulse Resp BP Pulse Ox 03/21/21 12:00 98.4 F 51 L 18 122/68 95 03/21/21 08:27 93 L 03/21/21 08:00 98.9 F 90 18 121/58 93 L 03/21/21 04:00 98.2 F 88 20 119/60 96 03/20/21 23:55 98.7 F 84 20 93/54 96 03/20/21 19:13 98.7 F 93 H 22 115/76 95 03/20/21 19:12 95 03/20/21 16:00 97.7 F 90 18 134/85 90 L Pain Assessment - Last Documented Pain Intensity 1 Pain Scale Used 0-10 Pain Scale Intake and Output: Intake & Output 03/19/21 03/20/21 03/21/21 03/22/21 11:59 11:59 11:59 11:59 Intake Total 704 2971 Output Total 2650 2650 Balance -1946 321 Weight 130.5 kg 130.5 kg Lab Results: Lab Results-Last 24 Hours 03/21/21 03/21/21 Range/Units 05:40 05:40 WBC 8.2 (4.0-10.5) K/mm3 RBC 4.31 (4.1-5.6) M/mm3 Hgb 13.2 (12.5-18.0) gm/dl Hct 42.1 (42-50) % MCV 97.7 (78-100) fl MCH 30.6 (26-32) pg MCHC 31.4 L (32-36) g/dl RDW 15.0 H (11.5-14.0) % Plt Count 191 (150-450) K/mm3 MPV 9.9 (7.5-11.0) fl Gran % 69.0 H (36.0-66.0) % Eos # (Auto) 0.16 (0-0.5) Absolute Lymphs (auto) 1.51 (1.0-4.6) Absolute Monos (auto) 0.88 (0.0-1.3) Lymphocytes % 18.3 L (24.0-44.0) % Monocytes % 10.7 (0.0-12.0) % Eosinophils % 1.9 (0.00-5.0) % Basophils % 0.1 (0.0-0.4) % Absolute Granulocytes 5.67 (1.4-6.9) Basophils # 0.01 (0-0.4) Sodium 139 (137-145) mmol/L Potassium 4.0 (3.5-5.1) mmol/L Chloride 104 (98-107) mmol/L Carbon Dioxide 29 (22-30) mmol/L Anion Gap 9.9 (5-15) MEQ/L BUN 20 (9-20) mg/dL Creatinine 0.90 (0.66-1.25) mg/dL Estimated GFR > 60.0 ML/MIN Glucose 75 (74-106) mg/dL Calcium 7.7 L (8.4-10.2) mg/dL Total Bilirubin 3.00 H (0.2-1.3) mg/dL AST 35 (17-59) U/L ALT 56 H (0-50) U/L Alkaline Phosphatase 91 (38-126) U/L Serum Total Protein 6.1 L (6.3-8.2) g/dL Albumin 3.4 L (3.5-5.0) g/dL Radiology Exams: Radiology Procedures Category Date Time Status ABDOMEN AND PELVIS W CONTRAST [CT] Stat Exams 03/19/21 15:34 Completed CHEST 1 VIEW (PORTABLE) Stat Exams 03/19/21 18:10 Completed KUB Routine Exams 03/20/21 Completed KUB Routine Exams 03/21/21 Completed Assessment/Plan (1) Partial obstruction of small intestine Current Visit: Yes Status: Acute Assessment & Plan: Persistent. However, night RN noted absent bowel sounds, and there are very good bowel sounds present today. Has not passed gas. Surgery consulting, thank you very much. Code(s): K56.600 - PARTIAL INTESTINAL OBSTRUCTION, UNSPECIFIED TO CAUSE (2) Conjunctivitis, right eye Current Visit: Yes Status: Acute Qualifiers: Conjunctivitis type: acute Acute conjunctivitis type: unspecified Qualified Code(s): H10.31 - Unspecified acute conjunctivitis, right eye Assessment & Plan: WIll treat as if acute bacterial, although he is unable to tell me if it is longstanding or not (poor historian). Code(s): H10.9 - UNSPECIFIED CONJUNCTIVITIS (3) Hypertension Current Visit: Yes Status: Chronic Qualifiers: Hypertension type: primary hypertension Qualified Code(s): I10 - Essential (primary) hypertension Assessment & Plan: doing well here. Code(s): I10 - ESSENTIAL (PRIMARY) HYPERTENSION (4) Hyperlipidemia Current Visit: Yes Status: Chronic Qualifiers: Hyperlipidemia type: unspecified Qualified Code(s): E78.5 - Hyperlipidemia, unspecified Code(s): E78.5 - HYPERLIPIDEMIA, UNSPECIFIED (5) Diverticulosis Current Visit: Yes Status: Chronic Code(s): K57.90 - DVRTCLOS OF INTEST, PART UNSP, W/O PERF OR ABSCESS W/O BLEED
[2021-03-21] MEDS: Erythromycin 3.5 GM OPHTH. OP SCH ×2 (13:48→21:01)
[2021-03-21] MEDS: DESYREL 50 MG PO SCH (21:02)
[2021-03-22] MEDS: Sodium Chloride 0.9% W/ 20 mEq KCl/LITER 1,000 ML IV SCH ×3 (04:51→20:50)
[2021-03-22 09:15] LABS: Absolute Neutrophil Ct (ANC) 5.86 (1.4-6.9); BASOPHIL % 0.1 % (0.0-0.4); Basophil (Absolute #) 0.01 (0-0.4); Eosinophil % 1.4 % (0.00-5.0); Eosinophil (Absolute #) 0.11 (0-0.5); Hematocrit 45.9 % (42-50); Hemoglobin 13.7 gm/dl (12.5-18.0); Lymphocyte (Absolute #) 1.07 (1.0-4.6); Lymphocytes % 13.8 % (24.0-44.0); Mean Cell Volume 100.2 fl (78-100); Mean Corpuscular Hemoglobin 29.9 pg (26-32); Mean Corpuscular Hgb Concent. 29.8 g/dl (32-36); Monocyte (Absolute #) 0.72 (0.0-1.3); Monocytes % 9.3 % (0.0-12.0); Neutrophil % 75.4 % (36.0-66.0); Platelet Count 157 K/mm3 (150-450); Red Blood Count 4.58 M/mm3 (4.1-5.6); Red Cell Distribution Width 14.6 % (11.5-14.0); White Blood Count 7.8 K/mm3 (4.0-10.5)
[2021-03-22 09:27] LABS: ALBUMIN 3.4 g/dL (3.5-5.0); ALKALINE PHOSPHATASE 91 U/L (38-126); ANION GAP 11.3 MEQ/L (5-15); BLOOD UREA NITROGEN 14 mg/dL (9-20); CHLORIDE 103 mmol/L (98-107); Calcium 7.9 mg/dL (8.4-10.2); Carbon Dioxide 29 mmol/L (22-30); Creatinine 1 0.75 mg/dL (0.66-1.25); EST GLOMERULAR FILTRATION RATE > 60.0 ML/MIN; Glucose 81 mg/dL (74-106); Potassium 4.4 mmol/L (3.5-5.1); SGOT/AST 26 U/L (17-59); SGPT/ALT 41 U/L (0-50); SODIUM 139 mmol/L (137-145); Total Protein 6.3 g/dL (6.3-8.2)
[2021-03-22] MEDS: PROTONIX 40 MG IV IV SCH (10:41)
[2021-03-22] MEDS: Cozaar 50 MG PO SCH (10:43)
[2021-03-22] MEDS: Erythromycin 3.5 GM OPHTH. OP SCH ×2 (10:44→20:51)
[2021-03-22] MEDS: ZOCOR 20MG PO SCH (10:44)
[2021-03-22] MEDS: hydroDIURIL 25 MG PO SCH (10:44)
[2021-03-22] MEDS: Toprol Xl 50 MG PO SCH (10:44)
[2021-03-22] MEDS: MORPHINE SULFATE 4 MG INJ IV PRN (14:34)
--- NOTE | 2021-03-22 15:44 | PCM.NOTE ---
Date and Time: 03/22/219 Subjective Assessment: Pt's HARMAN only put out 50cc last night. He had 2 small BMs. He states his pain is "20"/10 for me, in the L lower ribs, different than on admission. However RNs at night and today say they have offered pain meds and he refuses, saying his pain is 1/10. Says he uses albuterol inhaler at home for wheezing. - Review of Systems Constitutional: No Fever Abdominal/Gastrointestinal: Abdominal Pain Objective Exam General Appearance: no apparent distress, alert Neurologic Exam: oriented x 3, cooperative Skin Exam: normal color, warm, dry, No rash Eye Exam: other (R eye with evidence of ointment) Ears, Nose, Throat Exam: moist mucous membranes Respiratory Exam: diminished breath sounds (good air exchange), wheezing (scattered, faint), No crackles/rales, No rhonchi Cardiovascular Exam: regular rate/rhythm, normal heart sounds, No murmur Gastrointestinal/Abdomen Exam: soft, normal bowel sounds, tenderness (mild, suprapubic and periumbilical. mild ttp at inferior L ribs; no lesions), distention, No mass, No guarding, No rebound Extremity Exam: normal inspection, No pedal edema, No swelling OBJECTIVE DATA Vital Signs: Vital Signs - 24 hr Temp Pulse Resp BP Pulse Ox 03/22/21 11:43 98.4 F 88 18 170/77 93 L 03/22/21 11:27 94 L 03/22/21 07:51 98.2 F 89 20 139/66 93 L 03/22/21 03:50 98.7 F 89 20 143/65 94 L 03/21/21 23:22 98.7 F 84 22 113/55 95 03/21/21 20:32 92 L 03/21/21 19:34 99.3 F 90 22 132/70 95 03/21/21 16:00 98.7 F 89 16 141/64 96 Pain Assessment - Last Documented Pain Intensity 10 Pain Scale Used 0-10 Pain Scale Intake and Output: Intake & Output 03/20/21 03/21/21 03/22/21 03/23/21 11:59 11:59 11:59 11:59 Intake Total 704 2971 3072 0 Output Total 2650 7455 7193 450 Balance -1946 -54 647 -450 Weight 130.5 kg 130.5 kg 131 kg Lab Results: Lab Results-Last 24 Hours 03/22/21 03/22/21 Range/Units 08:55 08:55 WBC 7.8 (4.0-10.5) K/mm3 RBC 4.58 (4.1-5.6) M/mm3 Hgb 13.7 (12.5-18.0) gm/dl Hct 45.9 (42-50) % MCV 100.2 H (78-100) fl MCH 29.9 (26-32) pg MCHC 29.8 L (32-36) g/dl RDW 14.6 H (11.5-14.0) % Plt Count 157 (150-450) K/mm3 MPV 10.0 (7.5-11.0) fl Gran % 75.4 H (36.0-66.0) % Eos # (Auto) 0.11 (0-0.5) Absolute Lymphs (auto) 1.07 (1.0-4.6) Absolute Monos (auto) 0.72 (0.0-1.3) Lymphocytes % 13.8 L (24.0-44.0) % Monocytes % 9.3 (0.0-12.0) % Eosinophils % 1.4 (0.00-5.0) % Basophils % 0.1 (0.0-0.4) % Absolute Granulocytes 5.86 (1.4-6.9) Basophils # 0.01 (0-0.4) Sodium 139 (137-145) mmol/L Potassium 4.4 (3.5-5.1) mmol/L Chloride 103 (98-107) mmol/L Carbon Dioxide 29 (22-30) mmol/L Anion Gap 11.3 (5-15) MEQ/L BUN 14 (9-20) mg/dL Creatinine 0.75 (0.66-1.25) mg/dL Estimated GFR > 60.0 ML/MIN Glucose 81 (74-106) mg/dL Calcium 7.9 L (8.4-10.2) mg/dL Total Bilirubin 2.70 H (0.2-1.3) mg/dL AST 26 (17-59) U/L ALT 41 (0-50) U/L Alkaline Phosphatase 91 (38-126) U/L Serum Total Protein 6.3 (6.3-8.2) g/dL Albumin 3.4 L (3.5-5.0) g/dL Radiology Exams: Radiology Procedures Category Date Time Status KUB Routine Exams 03/21/21 Completed RIBS UNILATERAL Routine Exams 03/22/21 Ordered SMALL BOWEL FOLLOWING UGI Routine Exams 03/23/21 08:00 Ordered UPPER GI W/AIR Routine Exams 03/23/21 08:00 Ordered Assessment/Plan (1) Partial obstruction of small intestine Current Visit: Yes Status: Acute Assessment & Plan: Clinically he is better. Surgery is following, thank you, and I suspect they will at least clamp off the nG tube. Code(s): K56.600 - PARTIAL INTESTINAL OBSTRUCTION, UNSPECIFIED TO CAUSE (2) Conjunctivitis, right eye Current Visit: Yes Status: Acute Qualifiers: Conjunctivitis type: acute Acute conjunctivitis type: unspecified Qualified Code(s): H10.31 - Unspecified acute conjunctivitis, right eye Code(s): H10.9 - UNSPECIFIED CONJUNCTIVITIS (3) Hypertension Current Visit: Yes Status: Chronic Qualifiers: Hypertension type: primary hypertension Qualified Code(s): I10 - Essential (primary) hypertension Code(s): I10 - ESSENTIAL (PRIMARY) HYPERTENSION (4) Hyperlipidemia Current Visit: Yes Status: Chronic Qualifiers: Hyperlipidemia type: unspecified Qualified Code(s): E78.5 - Hyperlipidemia, unspecified Code(s): E78.5 - HYPERLIPIDEMIA, UNSPECIFIED (5) Diverticulosis Current Visit: Yes Status: Chronic Code(s): K57.90 - DVRTCLOS OF INTEST, PART UNSP, W/O PERF OR ABSCESS W/O BLEED (6) Wheezing Current Visit: Yes Status: Acute Assessment & Plan: added albuterol. Code(s): R06.2 - WHEEZING (7) Rib pain Current Visit: Yes Status: Acute Assessment & Plan: unsure etiology - xr ordered. Code(s): R07.81 - PLEURODYNIA
[2021-03-22] MEDS: DESYREL 50 MG PO SCH (20:50)
[2021-03-23] MEDS: Sodium Chloride 0.9% W/ 20 mEq KCl/LITER 1,000 ML IV SCH ×2 (04:28→16:29)
[2021-03-23 06:09] LABS: ALBUMIN 3.4 g/dL (3.5-5.0); ALKALINE PHOSPHATASE 86 U/L (38-126); ANION GAP 8.7 MEQ/L (5-15); BLOOD UREA NITROGEN 8 mg/dL (9-20); CHLORIDE 99 mmol/L (98-107); Calcium 8.1 mg/dL (8.4-10.2); Carbon Dioxide 34 mmol/L (22-30); Creatinine 1 0.75 mg/dL (0.66-1.25); EST GLOMERULAR FILTRATION RATE > 60.0 ML/MIN; Glucose 98 mg/dL (74-106); Potassium 4.2 mmol/L (3.5-5.1); SGOT/AST 25 U/L (17-59); SGPT/ALT 33 U/L (0-50); SODIUM 138 mmol/L (137-145); Total Protein 6.2 g/dL (6.3-8.2)
[2021-03-23 06:13] LABS: Absolute Neutrophil Ct (ANC) 4.36 (1.4-6.9); BASOPHIL % 0.3 % (0.0-0.4); Basophil (Absolute #) 0.02 (0-0.4); Eosinophil % 2.7 % (0.00-5.0); Eosinophil (Absolute #) 0.18 (0-0.5); Hematocrit 42.8 % (42-50); Hemoglobin 13.2 gm/dl (12.5-18.0); Lymphocyte (Absolute #) 1.25 (1.0-4.6); Mean Cell Volume 97.7 fl (78-100); Mean Corpuscular Hemoglobin 30.1 pg (26-32); Mean Corpuscular Hgb Concent. 30.8 g/dl (32-36); Mean Platelet Volume 9.9 fl (7.5-11.0); Monocyte (Absolute #) 0.76 (0.0-1.3); Monocytes % 11.6 % (0.0-12.0); Neutrophil % 66.4 % (36.0-66.0); Platelet Count 191 K/mm3 (150-450); Red Blood Count 4.38 M/mm3 (4.1-5.6); Red Cell Distribution Width 14.2 % (11.5-14.0); White Blood Count 6.6 K/mm3 (4.0-10.5)
--- NOTE | 2021-03-23 08:13 | PCM.NOTE ---
Date and Time: 03/23/21 08 Subjective Assessment: Pt denying abd pain this morning. Tolerated water and pepsi last night; however has been NPO since midnight so he can have a barium swallow study this morning, per DR. Quiñonez. - Review of Systems Constitutional: No Fever Abdominal/Gastrointestinal: No Vomiting Objective Exam General Appearance: no apparent distress, obese Neurologic Exam: alert, cooperative Skin Exam: normal color, warm, dry, No rash Ears, Nose, Throat Exam: moist mucous membranes Respiratory Exam: normal breath sounds, lungs clear, No crackles/rales, No rhonchi, No wheezing Cardiovascular Exam: regular rate/rhythm, normal heart sounds, No murmur Gastrointestinal/Abdomen Exam: soft, tenderness (RLQ, mild), distention, No normal bowel sounds (hypoactive, but present in RLQ), No mass, No guarding, No rebound Extremity Exam: No pedal edema, No swelling OBJECTIVE DATA Vital Signs: Vital Signs - 24 hr Temp Pulse Resp BP Pulse Ox 03/23/21 07:40 98.2 F 81 16 172/78 96 03/23/21 03:46 97.8 F 84 20 122/57 95 03/22/21 23:27 98 F 81 18 136/77 96 03/22/21 20:00 97.5 F 84 22 136/74 95 03/22/21 19:43 71 18 92 L 03/22/21 16:27 69 18 99 03/22/21 16:00 97.8 F 87 18 175/80 94 L 03/22/21 11:43 98.4 F 88 18 170/77 93 L 03/22/21 11:27 94 L Pain Assessment - Last Documented Pain Intensity 0 Pain Scale Used 0-10 Pain Scale Intake and Output: Intake & Output 03/20/21 03/21/21 03/22/21 03/23/21 11:59 11:59 11:59 11:59 Intake Total 704 2971 3072 4072 Output Total 7150 3025 242 3100 Balance -6 -54 004 972 Weight 130.5 kg 130.5 kg 131 kg 130.6 kg Lab Results: Lab Results-Last 24 Hours 03/22/21 03/22/21 03/23/21 Range/Units 08:55 08:55 04:30 WBC 7.8 6.6 (4.0-10.5) K/mm3 RBC 4.58 4.38 (4.1-5.6) M/mm3 Hgb 13.7 13.2 (12.5-18.0) gm/dl Hct 45.9 42.8 (42-50) % MCV 100.2 H 97.7 (78-100) fl MCH 29.9 30.1 (26-32) pg MCHC 29.8 L 30.8 L (32-36) g/dl RDW 14.6 H 14.2 H (11.5-14.0) % Plt Count 157 191 (150-450) K/mm3 MPV 10.0 9.9 (7.5-11.0) fl Gran % 75.4 H 66.4 H (36.0-66.0) % Eos # (Auto) 0.11 0.18 (0-0.5) Absolute Lymphs (auto) 1.07 1.25 (1.0-4.6) Absolute Monos (auto) 0.72 0.76 (0.0-1.3) Lymphocytes % 13.8 L 19.0 L (24.0-44.0) % Monocytes % 9.3 11.6 (0.0-12.0) % Eosinophils % 1.4 2.7 (0.00-5.0) % Basophils % 0.1 0.3 (0.0-0.4) % Absolute Granulocytes 5.86 4.36 (1.4-6.9) Basophils # 0.01 0.02 (0-0.4) Sodium 139 (137-145) mmol/L Potassium 4.4 (3.5-5.1) mmol/L Chloride 103 (98-107) mmol/L Carbon Dioxide 29 (22-30) mmol/L Anion Gap 11.3 (5-15) MEQ/L BUN 14 (9-20) mg/dL Creatinine 0.75 (0.66-1.25) mg/dL Estimated GFR > 60.0 ML/MIN Glucose 81 (74-106) mg/dL Calcium 7.9 L (8.4-10.2) mg/dL Total Bilirubin 2.70 H (0.2-1.3) mg/dL AST 26 (17-59) U/L ALT 41 (0-50) U/L Alkaline Phosphatase 91 (38-126) U/L Serum Total Protein 6.3 (6.3-8.2) g/dL Albumin 3.4 L (3.5-5.0) g/dL 03/23/21 Range/Units 04:30 WBC (4.0-10.5) K/mm3 RBC (4.1-5.6) M/mm3 Hgb (12.5-18.0) gm/dl Hct (42-50) % MCV (78-100) fl MCH (26-32) pg MCHC (32-36) g/dl RDW (11.5-14.0) % Plt Count (150-450) K/mm3 MPV (7.5-11.0) fl Gran % (36.0-66.0) % Eos # (Auto) (0-0.5) Absolute Lymphs (auto) (1.0-4.6) Absolute Monos (auto) (0.0-1.3) Lymphocytes % (24.0-44.0) % Monocytes % (0.0-12.0) % Eosinophils % (0.00-5.0) % Basophils % (0.0-0.4) % Absolute Granulocytes (1.4-6.9) Basophils # (0-0.4) Sodium 138 (137-145) mmol/L Potassium 4.2 (3.5-5.1) mmol/L Chloride 99 (98-107) mmol/L Carbon Dioxide 34 H (22-30) mmol/L Anion Gap 8.7 (5-15) MEQ/L BUN 8 L (9-20) mg/dL Creatinine 0.75 (0.66-1.25) mg/dL Estimated GFR > 60.0 ML/MIN Glucose 98 (74-106) mg/dL Calcium 8.1 L (8.4-10.2) mg/dL Total Bilirubin 2.20 H (0.2-1.3) mg/dL AST 25 (17-59) U/L ALT 33 (0-50) U/L Alkaline Phosphatase 86 (38-126) U/L Serum Total Protein 6.2 L (6.3-8.2) g/dL Albumin 3.4 L (3.5-5.0) g/dL Radiology Exams: Radiology Procedures Category Date Time Status RIBS UNILATERAL Routine Exams 11/21/21 Taken SMALL BOWEL FOLLOWING UGI Routine Exams 03/23/21 08:00 Ordered UPPER GI W/AIR Routine Exams 03/23/21 08:00 Ordered Assessment/Plan (1) Partial obstruction of small intestine Current Visit: Yes Status: Acute Assessment & Plan: Resolving; barium swallow today. Advance diet per surgery orders. Code(s): K56.600 - PARTIAL INTESTINAL OBSTRUCTION, UNSPECIFIED TO CAUSE (2) Conjunctivitis, right eye Current Visit: Yes Status: Acute Qualifiers: Conjunctivitis type: acute Acute conjunctivitis type: unspecified Qualified Code(s): H10.31 - Unspecified acute conjunctivitis, right eye Code(s): H10.9 - UNSPECIFIED CONJUNCTIVITIS (3) Hypertension Current Visit: Yes Status: Chronic Qualifiers: Hypertension type: primary hypertension Qualified Code(s): I10 - Essential (primary) hypertension Code(s): I10 - ESSENTIAL (PRIMARY) HYPERTENSION (4) Hyperlipidemia Current Visit: Yes Status: Chronic Qualifiers: Hyperlipidemia type: unspecified Qualified Code(s): E78.5 - Hyperlipidemia, unspecified Code(s): E78.5 - HYPERLIPIDEMIA, UNSPECIFIED (5) Diverticulosis Current Visit: Yes Status: Chronic Code(s): K57.90 - DVRTCLOS OF INTEST, PART UNSP, W/O PERF OR ABSCESS W/O BLEED (6) Wheezing Current Visit: Yes Status: Acute Code(s): R06.2 - WHEEZING (7) Rib pain Current Visit: Yes Status: Acute Assessment & Plan: It's much better this morning. Rib xr read still pending. Code(s): R07.81 - PLEURODYNIA
--- NOTE | 2021-03-23 08:42 | XRAY ---
Indication: Pain. No known injury. Comparison: None 2 view left ribs demonstrates osteopenia and multilevel degenerative spondylosis. No other bony, articular, or soft tissue abnormalities.
[2021-03-23] MEDS: VENTOLIN COMMON CANISTER IH PRN (09:00)
--- NOTE | 2021-03-23 09:11 | CONS ---
CONSULT DATE: 03/20/2021 REASON FOR CONSULT: Small bowel obstruction. HISTORY: The patient is a very robust gentleman somewhat elderly, 70 years old. His is present. His looks a fair amount younger. Real discussion. He has not had any gas out his rectum in two days. His abdomen is clearly distended. He has had some vomiting. His nasogastric tube is foul. It looks like it is in the right position doing the right thing. There is no palpable mass. There are no peritoneal signs but he has moderate to marked abdominal distention. The CT is consistent with small bowel obstruction. IMPRESSION: The patient has a nontoxic small bowel obstruction. We will reassess him tomorrow at noon. He may eventually need surgical intervention.
[2021-03-23] MEDS: Toprol Xl 50 MG PO SCH (11:51)
[2021-03-23] MEDS: Cozaar 50 MG PO SCH (11:51)
[2021-03-23] MEDS: ZOCOR 20MG PO SCH (11:51)
[2021-03-23] MEDS: hydroDIURIL 25 MG PO SCH (11:51)
[2021-03-23] MEDS: Erythromycin 3.5 GM OPHTH. OP SCH ×2 (11:51→21:04)
--- NOTE | 2021-03-23 11:51 | XRAY ---
Indication: Small bowel follow-through. Comparison: None Double contrast upper GI exam performed. Patient ingested barium without miss or aspiration. Esophagus is normal in course and caliber without focal stricture, obstruction, or filling defect. Barium freely emptied into the stomach. No hiatal hernia or gastroesophageal reflux demonstrated. Stomach normally distended. Contours of the lesser and greater curvature appears smooth. No filling defect or acute ulcerations. Normal duodenal cap and sweep. Impression: Negative double contrast upper GI exam. Approximately 1.2 minute fluoroscopy used in conjunction with same-day small bowel follow-through exam.
[2021-03-23] MEDS: PROTONIX 40 MG IV IV SCH (11:52)
--- NOTE | 2021-03-23 11:55 | XRAY ---
Indication: Small bowel follow-through. Comparison: None Preliminary supervisor fabrication department abdomen appears nonacute and nonobstructed with cholecystectomy clips and degenerative changes throughout the spine. Double contrast upper GI exam was performed 1st. Multiple overhead and digital spot images obtained. Barium moved through the small bowel loops to the level of the distal descending colon within 2 hours. Spot compression of the small bowel loops are negative for focal stricture, obstruction, flocculation, or inflammatory changes. Normal ileocecal junction. Impression: Negative small bowel follow through exam. Approximately 1.2 minute fluoroscopy used in conjunction with same-day upper GI exam.
[2021-03-23] MEDS: DESYREL 50 MG PO SCH (21:03)
[2021-03-24] MEDS: Sodium Chloride 0.9% W/ 20 mEq KCl/LITER 1,000 ML IV SCH ×2 (00:32→09:36)
[2021-03-24 06:46] VITALS: BP 158/75
[2021-03-24] MEDS: VENTOLIN COMMON CANISTER IH PRN (09:18)
[2021-03-24 09:26] VITALS: PULSE 96; O2SAT 92
[2021-03-24] MEDS: Toprol Xl 50 MG PO SCH (09:35)
[2021-03-24] MEDS: hydroDIURIL 25 MG PO SCH (09:35)
[2021-03-24] MEDS: Cozaar 50 MG PO SCH (09:36)
[2021-03-24] MEDS: ZOCOR 20MG PO SCH (09:36)
[2021-03-24] MEDS: Erythromycin 3.5 GM OPHTH. OP SCH (09:37)
[2021-03-24] MEDS: PROTONIX 40 MG IV IV SCH (09:37)
--- NOTE | 2021-04-04 13:33 | PCM.DS ---
Discharge Summary Date of Admission: 03/21/21 13:12 Date of Discharge: 03/24/2021 Admitting Physician: BREEZY GANDARA Consults: Consults on Case 03/20/21 09:00 Consult Surgery ROUTINE Primary Care Provider: BREEZY MEJIA Allergies Allergies No Known Drug Allergies Allergy (Verified 03/19/21 15:07) Hospital Summary - Hospital Course Hospital Course: Pt. admitted for NPO status and further evaluation of etiology of partial small bowel obstruction. Pt. symptoms improved, no surgery required and pt. was ready for discharge by 03/24. - Vitals & Intake/Output Vital Signs: Vital Signs Temperature 98.6 F 03/24/21 06:45 Pulse Rate 96 H 03/24/21 09:19 Respiratory Rate 16 03/24/21 09:19 Blood Pressure 158/75 03/24/21 06:45 O2 Sat by Pulse Oximetry 92 L 03/24/21 09:19 - Lab Result Diagrams: 03/23/21 04:30 03/23/21 04:30 - Procedures and Test Procedures and Tests throughout Hospitalization: Therapy Orders & Screens 03/19/21 23:32 Oxygen Nasal Cannula 4 lpm Comment: Diagnosis: Small Bowel Obstruction 03/21/21 21:34 Incentive Spirometry TID Comment: Diagnosis: Small Bowel Obstruction 03/22/21 16:26 Respiratory Therapy Assessment DAILY Comment: Diagnosis: Small Bowel Obstruction Discharge Exam General Appearance: no apparent distress, alert Neurologic Exam: alert, oriented x 3, cooperative, normal mood/affect, nml cerebellar function, sensation nml, No motor deficits Eye Exam: PERRL, EOMI, eyes nml inspection Ears, Nose, Throat Exam: normal ENT inspection, pharynx normal, moist mucous membranes Neck Exam: normal inspection, non-tender, supple, full range of motion Respiratory Exam: normal breath sounds, lungs clear, No respiratory distress Cardiovascular Exam: regular rate/rhythm, normal heart sounds Gastrointestinal/Abdomen Exam: soft, No tenderness, No mass Male Genitalia Exam: deferred Rectal Exam: deferred Back Exam: normal inspection, normal range of motion, No CVA tenderness, No vertebral tenderness Extremity Exam: normal inspection, normal range of motion Skin Exam: normal color, warm, dry Final Diagnosis/Problem List - Final Discharge Diagnosis/Problem (1) Conjunctivitis, right eye Status: Acute Code(s): H10.9 - UNSPECIFIED CONJUNCTIVITIS (2) Partial obstruction of small intestine Status: Acute Code(s): K56.600 - PARTIAL INTESTINAL OBSTRUCTION, UNSPECIFIED TO CAUSE (3) Diverticulosis Status: Chronic Code(s): K57.90 - DVRTCLOS OF INTEST, PART UNSP, W/O PERF OR ABSCESS W/O BLEED (4) Hyperlipidemia Status: Chronic Code(s): E78.5 - HYPERLIPIDEMIA, UNSPECIFIED (5) Hypertension Status: Chronic Code(s): I10 - ESSENTIAL (PRIMARY) HYPERTENSION - Discharge Discharge Date: 03/24/21 Disposition: Home, Self-Care Condition: Stable Prescriptions: Continue Metoprolol Succinate 50 mg [Toprol Xl 50 MG] 1 ea DAILY Hydrochlorothiazide 25 mg [hydroDIURIL 25 MG] 1 ea DAILY Atorvastatin Calcium [Lipitor] 1 ea DAILY Losartan Potassium 100 mg PO DAILY Trazodone HCl 50 mg [Desyrel 50 mg] 50 mg PO HS Instructions: Small Bowel Obstruction, Small Bowel Obstruction (DC) Follow up with: BREEZY GANDARA MD [ACTIVE STAFF] - 04/02/21 9:30 am
== END 2021-03-24 10:52 | disposition home or self-care (01) | DRG 389 ==
LOC: ED 14:57 → MED SURG 19:28 → OBSVTOIN 03-21 13:12
PROVIDERS: ADMIT Family Medicine; ATTEND Family Medicine
DX: K56.600 Partial intestinal obstruction, unspecified as to cause (principal); K57.92 Diverticulitis of intestine, part unspecified, without perforation or abscess without bleeding; R11.2 Nausea with vomiting, unspecified; E78.00 Pure hypercholesterolemia, unspecified; I10 Essential (primary) hypertension; E78.5 Hyperlipidemia, unspecified; H10.31 Unspecified acute conjunctivitis, right eye; R06.2 Wheezing; R07.81 Pleurodynia; Z79.899 Other long term (current) drug therapy; Z20.828 Contact with and (suspected) exposure to other viral communicable diseases
CPT/HCPCS: 0241U; 36000; 36415; 71045; 71100; 74018; 74177; 74246; 74248; 80053; 81001; 83605; 83690; 85025; 94640; 94760; 96374; 96375; 96376; 99285; G0378; J2060; J2270; J2405; A9270-GY

== ENCOUNTER 2023-10-01 18:04 | Observation (INO) | payer MEDICARE ==
[2023-10-01 18:27] LABS: Absolute Neutrophil Ct (ANC) 6.31 x10^3/uL (1.4-6.9); BASOPHIL % 0.3 % (0.0-0.4); Basophil (Absolute #) 0.03 x10^3/uL (0-0.4); Eosinophil % 2.3 % (0.00-5.0); Eosinophil (Absolute #) 0.21 x10^3/uL (0-0.5); Hematocrit 41.6 % (42-50); Hemoglobin 13.5 g/dL (12.5-18.0); IMMATURE GRAN # 0.02 x10^3u/L (0.00-0.03); IMMATURE GRAN % 0.2 % (0.00-0.4); Lymphocyte (Absolute #) 1.69 x10^3/uL (1.0-4.6); Lymphocytes % 18.5 % (24.0-44.0); Mean Corpuscular Hemoglobin 29.9 pg (26-32); Mean Corpuscular Hgb Concent. 32.5 g/dL (32-36); Mean Platelet Volume 9.2 fL (7.5-11.0); Monocyte (Absolute #) 0.88 x10^3/uL (0.0-1.3); Monocytes % 9.6 % (0.0-12.0); Neutrophil % 69.1 % (36.0-66.0); Platelet Count 313 x10^3/uL (150-450); Red Blood Count 4.52 x10^6/uL (4.1-5.6); Red Cell Distribution Width 14.1 % (11.5-14.0); White Blood Count 9.1 x10^3/uL (4.0-10.5)
[2023-10-01] MEDS ORDERED: Zofran 4 MG/2 ML VIAL ONE (18:28)
[2023-10-01] MEDS ORDERED: PROTONIX 40 MG IV IV ONE (18:28)
[2023-10-01] MEDS ORDERED: Sodium Chloride 0.9% 500 ML 500 ML IV ONE (18:28)
--- NOTE | 2023-10-01 18:29 | ERPHSYRPT ---
- History of Present Illness Time Seen by Provider: 10/01/23 18:08 Historian: patient Exam Limitations: no limitations Patient Subjective Stated Complaint: Pt states "I have had belly pain for the past couple of days. It feels like it is cutting through my belly." Triage Nursing Assessment: Pt presented alert nad oriented X 3, skin pwd. Pt ambulates with an upright steady gait, able to speak in clear full sentences. Pt resting comfortably on the bed with no aparent respiratory dsitress. Physician History: 73-year-old male with history of hypertension, GERD, congestive heart failure, obstructive sleep apnea presented in the ER with 3 days history of upper abdominal pain intermittent moderate intensity sharp stabbing, aggravated with oral intake and partial relief with being still. Associated multiple episodes of nonprojectile, nonbilious vomiting with no hematemesis. Also reported multiple episodes of loose watery stool with no hematochezia. Patient currently denies having any abdominal pain. Denies any chest pain palpitations or shortness of breath. No fever or chills reported. Allergies/Adverse Reactions: No Known Drug Allergies Allergy (Verified 03/19/21 15:07) Home Medications: Losartan Potassium 100 mg PO DAILY 03/19/21 [History] Atorvastatin Calcium 40 mg PO DAILY 10/01/23 [History] Furosemide 40 mg [Lasix 40 MG] 40 mg PO DAILY 10/01/23 [History] Hx Tetanus, Diphtheria Vaccination/Date Given: No Hx Influenza Vaccination/Date Given: No Hx Pneumococcal Vaccination/Date Given: No Immunizations Up to Date: No Travel Risk - International Travel Have you traveled outside of the country in past 3 weeks: No - Emerging Infectious Disease Are you exhibiting symptoms associated with any current EIDs: Yes Symptoms: Abdominal Pain - Review of Systems Constitutional: No Symptoms Eyes: No Symptoms Respiratory: No Symptoms Cardiac: No Symptoms Abdominal/Gastrointestinal: Abdominal Pain, Nausea, Vomiting, Diarrhea Genitourinary Symptoms: No Symptoms Musculoskeletal: Myalgias Skin: No Symptoms Neurological: No Symptoms Psychological: No Symptoms Endocrine: No Symptoms Hematologic/Lymphatic: No Symptoms - Past Medical History Pertinent Past Medical History: Yes Neurological History: No Pertinent History ENT History: No Pertinent History Cardiac History: Aneurysm, High Cholesterol, Hypertension Respiratory History: COPD, Sleep Apnea Endocrine Medical History: No Pertinent History Musculoskeletal History: No Pertinent History GI Medical History: Diverticulitis, GERD, Hernia History: No Pertinent History Psycho-Social History: No Pertinent History Male Reproductive Disorders: No Pertinent History - Past Surgical History Past Surgical History: Yes Neuro Surgical History: No Pertinent History Cardiac: No Pertinent History Respiratory: No Pertinent History Gastrointestinal: Hernia Repair Genitourinary: No Pertinent History Musculoskeletal: Orthopedic Surgery Male Surgical History: No Pertinent History Other Surgical History: Left ankle. - Social History Smoking Status: Former smoker Exposure to second hand smoke: No Drug Use: none Patient Lives Alone: No - Social Determinants of Health Will the patient participate in the screening: Declined to provide - Nursing Vital Signs Nursing Vital Signs: Initial Vital Signs Temperature 97.8 F 10/01/23 18:08 Pulse Rate 99 H 10/01/23 18:08 Respiratory Rate 22 10/01/23 18:08 Blood Pressure 127/58 10/01/23 18:08 O2 Sat by Pulse Oximetry 94 L 10/01/23 18:08 Pain Scale Pain Intensity 4 - Physical Exam General Appearance: no apparent distress, alert Eye Exam: PERRL/EOMI Ears, Nose, Throat Exam: normal ENT inspection Neck Exam: normal inspection, full range of motion Respiratory Exam: normal breath sounds, lungs clear Cardiovascular Exam: regular rate/rhythm, normal heart sounds Gastrointestinal/Abdomen Exam: soft, normal bowel sounds, tenderness (Minimal upper abdominal tenderness to deep palpation with no guarding or rebound.) Extremity Exam: normal inspection, normal range of motion Neurologic Exam: alert, oriented x 3, cooperative Skin Exam: normal color SpO2 Interpretation: normal SpO2: 94 O2 Delivery: Room Air - Course EKG Interpreted by Me: RATE (97), Sinus Rhythm, Right Bundle Branch Block, Q- wave, Non-specific ST Changes Ordered Tests: Active Orders 24 hr Category Date Time Status EKG-ER Only STAT Care 10/01/23 18:18 Active IV Insertion STAT Care 10/01/23 18:18 Active NPO (ED) STAT Care 10/01/23 18:18 Active ABDOMEN AND PELVIS W/0 CONTRAS [CT] Stat Exams 10/01/23 19:55 Completed CBC W DIFF Stat Lab 10/01/23 18:20 Completed CMP Stat Lab 10/01/23 18:20 Completed LIPASE Stat Lab 10/01/23 18:20 Completed Lactic Acid Stat Lab 10/01/23 18:25 Completed MAGNESIUM Stat Lab 10/01/23 18:20 Completed TROPONIN Q4H Lab 10/01/23 18:20 Completed TROPONIN Q4H Lab 10/01/23 21:10 Completed TROPONIN Q4H Lab 10/02/23 02:30 Ordered UA W/RFX UR CULTURE Stat Lab 10/01/23 22:31 Completed Medication Summary Generic Name Dose Route Start Last Admin Trade Name Freq PRN Reason Stop Dose Admin Sodium Chloride 1,000 mls @ 125 mls/hr 10/01/23 18:30 10/01/23 19:48 Sodium Chloride 0.9% 1000 Ml IV 10/31/23 18:29 125 mls/hr .Q8H DARIANA Administration Discontinued Medications Generic Name Dose Route Start Last Admin Trade Name Freq PRN Reason Stop Dose Admin Sodium Chloride 500 mls @ 500 mls/hr 10/01/23 18:19 10/01/23 20:25 Sodium Chloride 0.9% 500 Ml IV 10/01/23 19:18 Infused .Q1H ONE Infusion Sodium Chloride Confirm 10/01/23 18:28 Sodium Chloride 0.9% 500 Ml Administered 10/01/23 18:29 Dose 500 mls @ ud IV .STK-MED ONE Ondansetron HCl 4 mg 10/01/23 18:18 10/01/23 18:33 Ondansetron Hcl 4 Mg/2 Ml Vial IV 10/01/23 18:19 4 mg STAT ONE Administration Ondansetron HCl Confirm 10/01/23 18:28 Ondansetron Hcl 4 Mg/2 Ml Vial Administered 10/01/23 18:29 Dose 4 mg .ROUTE .STK-MED ONE Pantoprazole Sodium 40 mg 10/01/23 18:18 10/01/23 18:35 Pantoprazole 40 Mg Vial IV 10/01/23 18:19 40 mg STAT ONE Administration Pantoprazole Sodium Confirm 10/01/23 18:28 Pantoprazole 40 Mg Vial Administered 10/01/23 18:29 Dose 40 mg IV .STK-MED ONE Lab/Rad Data: Laboratory Result Diagrams 10/01/23 18:20 10/01/23 18:20 Laboratory Results 10/01/23 10/01/23 10/01/23 Range/Units 22:31 21:10 18:25 WBC (4.0-10.5) x10^3/uL RBC (4.1-5.6) x10^6/uL Hgb (12.5-18.0) g/dL Hct (42-50) % MCV (78-100) fL MCH (26-32) pg MCHC (32-36) g/dL RDW (11.5-14.0) % Plt Count (150-450) x10^3/uL MPV (7.5-11.0) fL Gran % (36.0-66.0) % Immature Gran % (Auto) (0.00-0.4) % Nucleat RBC Rel Count (0.00-0.1) % Eos # (Auto) (0-0.5) x10^3/uL Immature Gran # (Auto) (0.00-0.03) x10^3u/L Absolute Lymphs (auto) (1.0-4.6) x10^3/uL Absolute Monos (auto) (0.0-1.3) x10^3/uL Absolute Nucleated RBC (0.00-0.01) x10^3u/L Lymphocytes % (24.0-44.0) % Monocytes % (0.0-12.0) % Eosinophils % (0.00-5.0) % Basophils % (0.0-0.4) % Absolute Granulocytes (1.4-6.9) x10^3/uL Basophils # (0-0.4) x10^3/uL Sodium (135-145) mmol/L Potassium (3.5-5.1) mmol/L Chloride (98-107) mmol/L Carbon Dioxide (22-30) mmol/L Anion Gap (5-15) MEQ/L BUN (9-20) mg/dL Creatinine (0.66-1.25) mg/dL Estimated GFR ML/MIN Glucose (74-106) mg/dL Lactic Acid 1.4 (0.4-2.0) Calcium (8.4-10.2) mg/dL Magnesium (1.6-2.3) mg/dL Total Bilirubin (0.2-1.3) mg/dL AST (17-59) U/L ALT (0-50) U/L Alkaline Phosphatase (38-126) U/L Troponin I < 0.012 (0.000-0.033) ng/mL Serum Total Protein (6.3-8.2) g/dL Albumin (3.5-5.0) g/dL Lipase (23-300) U/L Urine Color Dark Yellow (Yellow) Urine Appearance Cloudy A (Clear) Urine pH 5.0 (4.6-8.0) Ur Specific [place] 1.020 (1.005-1.030) Urine Protein 30 (Negative) Urine Glucose (UA) Negative (Negative) mg/dL Urine Ketones Trace A (Negative) Urine Blood Negative (Negative) Urine Nitrite Negative (Negative) Urine Bilirubin Negative (Negative) Urine Urobilinogen 1.0 A (0.2) mg/dL Ur Leukocyte Esterase Trace A (Negative) U Hyaline Cast (Auto) 6-10 A (0-2) /LPF Urine Microscopic RBC 3-5 (0-5) /HPF Urine Microscopic WBC 0-2 (0-5) /HPF Ur Epithelial Cells Few (None Seen) /HPF Urine Bacteria None Seen (None Seen) /HPF Urine Culture Reflexed NO (NO) 10/01/23 10/01/23 10/01/23 Range/Units 18:20 18:20 18:20 WBC 9.1 (4.0-10.5) x10^3/uL RBC 4.52 (4.1-5.6) x10^6/uL Hgb 13.5 (12.5-18.0) g/dL Hct 41.6 L (42-50) % MCV 92.0 (78-100) fL MCH 29.9 (26-32) pg MCHC 32.5 (32-36) g/dL RDW 14.1 H (11.5-14.0) % Plt Count 313 (150-450) x10^3/uL MPV 9.2 (7.5-11.0) fL Gran % 69.1 H (36.0-66.0) % Immature Gran % (Auto) 0.2 (0.00-0.4) % Nucleat RBC Rel Count 0.0 (0.00-0.1) % Eos # (Auto) 0.21 (0-0.5) x10^3/uL Immature Gran # (Auto) 0.02 (0.00-0.03) x10^3u/L Absolute Lymphs (auto) 1.69 (1.0-4.6) x10^3/uL Absolute Monos (auto) 0.88 (0.0-1.3) x10^3/uL Absolute Nucleated RBC 0.00 (0.00-0.01) x10^3u/L Lymphocytes % 18.5 L (24.0-44.0) % Monocytes % 9.6 (0.0-12.0) % Eosinophils % 2.3 (0.00-5.0) % Basophils % 0.3 (0.0-0.4) % Absolute Granulocytes 6.31 (1.4-6.9) x10^3/uL Basophils # 0.03 (0-0.4) x10^3/uL Sodium 138 (135-145) mmol/L Potassium 4.0 (3.5-5.1) mmol/L Chloride 103 (98-107) mmol/L Carbon Dioxide 26 (22-30) mmol/L Anion Gap 12.1 (5-15) MEQ/L BUN 43 H (9-20) mg/dL Creatinine 1.78 H (0.66-1.25) mg/dL Estimated GFR 39.3 ML/MIN Glucose 116 H (74-106) mg/dL Lactic Acid (0.4-2.0) Calcium 8.8 (8.4-10.2) mg/dL Magnesium 2.6 H (1.6-2.3) mg/dL Total Bilirubin 1.80 H (0.2-1.3) mg/dL AST 28 (17-59) U/L ALT 28 (0-50) U/L Alkaline Phosphatase 101 (38-126) U/L Troponin I < 0.012 (0.000-0.033) ng/mL Serum Total Protein 7.5 (6.3-8.2) g/dL Albumin 4.3 (3.5-5.0) g/dL Lipase 56 (23-300) U/L Urine Color (Yellow) Urine Appearance (Clear) Urine pH (4.6-8.0) Ur Specific [place] (1.005-1.030) Urine Protein (Negative) Urine Glucose (UA) (Negative) mg/dL Urine Ketones (Negative) Urine Blood (Negative) Urine Nitrite (Negative) Urine Bilirubin (Negative) Urine Urobilinogen (0.2) mg/dL Ur Leukocyte Esterase (Negative) U Hyaline Cast (Auto) (0-2) /LPF Urine Microscopic RBC (0-5) /HPF Urine Microscopic WBC (0-5) /HPF Ur Epithelial Cells (None Seen) /HPF Urine Bacteria (None Seen) /HPF Urine Culture Reflexed (NO) - Progress Progress: improved, re-examined Progress Note: 10/01/23 22:50 73-year-old is evaluated in the ER for upper abdominal pain with nausea vomiting. Patient is given fluids and Zofran, feeling better on reevaluation. Has no abdominal tenderness on repeated evaluation. Patient workup showed normal white count, does have REBECCA with a baseline creatinine around 0.9-1.0 and today is 1.7 with a BUN of 43. Also has a magnesium of 2.6 which I believe is secondary to dehydration. Patient is not in any distress. Negative troponins x 2. EKG showed sinus rhythm with right bundle branch block and Q waves with no new changes when compared with the previous EKG. I have obtained CT abdomen pelvis without contrast which is negative for any acute findings like intestinal obstruction, pancreatitis, colitis. Patient does have history of cholecystectomy. Patient blood pressure is in low 100s. I believe patient would benefit with IV hydration and recheck of kidney functions as his renal failure seems to be prerenal. I have discussed with Dr. Acosta, reviewed history, workup and agreed with admission. I have shared the results of workup with patient and daughter and plan of admission which they understand and agree with it. Counseled pt/family regarding: lab results, diagnosis, need for follow-up, rad results Medical Desision Making - Independent Historian Additional History obtained from: Child - Discussion of managment Care discussed with:: hospitalist (Dr. Orosco) Reviewed:: Test results Agreed on:: Treatment plan Will see patient: in hospital - Diagnostic Testing Diagnostic test were ordered, analyzed, and reviewed by me: Yes Radiological Interpretation: Reviewed by me, Teleradiologist Report - Risk of complications The pt has a mod risk of morbidity or mortality based on: Need for prescription drug management The pt has a high risk of morbidity or mortality based on: Decision regarding hospitilization or escalation of hosp level of care - Departure Departure Disposition: Observation Clinical Impression: Nausea & vomiting, Upper abdominal pain, REBECCA (acute kidney injury) Condition: Stable Critical Care Time: No Referrals: DOCTOR,NO FAMILY [Primary Care Provider] - Follow up/PCP as directed
[2023-10-01] MEDS: Sodium Chloride 0.9% 500 ML 500 ML IV ONE (18:31)
[2023-10-01] MEDS: Zofran 4 MG/2 ML VIAL IV ONE (18:33)
[2023-10-01] MEDS: PROTONIX 40 MG IV IV ONE (18:35)
[2023-10-01 18:40] LABS: ALBUMIN 4.3 g/dL (3.5-5.0); ANION GAP 12.1 MEQ/L (5-15); BILIRUBIN,TOTAL 1.8 mg/dL (0.2-1.3); Calcium 8.8 mg/dL (8.4-10.2); Creatinine 1 1.78 mg/dL (0.66-1.25); EST GLOMERULAR FILTRATION RATE 39.3 ML/MIN; MAGNESIUM 2.6 mg/dL (1.6-2.3); Total Protein 7.5 g/dL (6.3-8.2)
[2023-10-01] MEDS: Sodium Chloride 0.9% 1000 ML 1,000 ML IV SCH (19:48)
--- NOTE | 2023-10-01 22:04 | XRAY ---
CLINICAL HISTORY: upper abd pain COMPARISON: None TECHNIQUE: CT scan of the abdomen was performed without IV contrast, Coronal and sagittal reconstructive images were also obtained. One of the following dose reduction techniques were utilized for this exam: Automated exposure control, adjustment of the mA and/or kV according to patient size, use of iterative reconstruction FINDINGS: Lung bases show mild right-sided pleural thickening with calcifications and adjacent linear subsegmental atelectasis.. The liver is normal in size without focal parenchymal abnormality. The intrahepatic biliary radicals and the bile ducts are normal. Gallbladder is not seen, s/p cholecystectomy. A few tiny spleen calcifications are seen, likely secondary to prior granulomatous infections. The spleen, pancreas, adrenal glands are unremarkable. The kidneys are unremarkable. They are normal in size and shape. No calculi or hydronephrosis is seen. Multiple distal colon diverticuli are seen without inflammation findings. Appendix is unremarkable. There is no evidence of significant enlargement of the mesenteric or retroperitoneal lymph nodes. Severe lumbar spondylosis is seen with multilevel marginal osteophytes. Pelvis: The urinary bladder is unremarkable. The rectosigmoid colon is unremarkable. The prostate is unremarkable The pelvic vasculature is unremarkable. No evidence of pelvic lymphadenopathy. IMPRESSION: No significant acute abnormality is noted. Diverticulosis coli without diverticulitis Electronically Signed by: Brittnee Salinas MD. (10/01/2023 22:00:38 EDT)
[2023-10-01 22:49] LABS: Appearance Cloudy (Clear); Bacteria None Seen /HPF (None Seen); Bilirubin Negative (Negative); Blood Negative (Negative); Epithelial Cells Few /HPF (None Seen); Glucose, Urine Negative (Negative); Ketones Trace (Negative); Leukocyte Esterase Trace (Negative); Nitrite Negative (Negative); Protein,Urine Dip 30 (Negative); WBC 0-2 /HPF (0-5)
[2023-10-01 22:50] LABS: ADD URINE CULTURE? NO (NO)
[2023-10-01] MEDS ORDERED: TYLENOL 325 MG PO PRN (22:56)
[2023-10-01] MEDS ORDERED: PHENERGAN 25 MG PO PRN (22:56)
--- NOTE | 2023-10-01 23:48 | PCM.HP ---
History of Present Illness - Chief Complaint Chief Complaint: vomiting Date: 10/01/23 History of Present Illness: 73 y/o M with h/o HTN, dyslipidemia, who presents with three days of severe nausea and vomiting, associated with sharp moderate midepigastric abdominal pain . Pain and nausea have improved today, but today had multiple episodes of watery diarrhea. Has been unable to eat or really drink anything for the past three days, and now has had no urine output. Denies lightheadedness or dizziness on standing, but he is concerned that his blood pressure is lower today. States has similar episodes about once per year. Denies fevers, sick contacts, chest pain, cough, or dysuria. - Review of Systems Constitutional: No Fever, No Fatigue Eyes: No Symptoms Ears, Nose, & Throat: No Symptoms Respiratory: No Symptoms Cardiac: No Symptoms Abdominal/Gastrointestinal: Abdominal Pain, Nausea, Vomiting, Diarrhea, Appetite Changes, No Hematemesis, No Hematochezia, No Melena All Other Systems: Reviewed and Negative Medications & Allergies Home Medications: Home Medication List Losartan Potassium 100 mg PO DAILY 03/19/21 [History Confirmed 10/01/23] Atorvastatin Calcium 40 mg PO DAILY 10/01/23 [History Confirmed 10/01/23] Furosemide 40 mg [Lasix 40 MG] 40 mg PO DAILY 10/01/23 [History Confirmed 10/01/23] Albuterol Sulfate [Proair Respiclick] 1 inh IH DAILY 10/02/23 [History Confirmed 10/02/23] Fluticasone/Umeclidin/Vilanter [Trelegy Ellipta 100-62.5-25] 1 each IH DAILY 10/02/23 [History Confirmed 10/02/23] Omeprazole Magnesium [Prilosec Otc] 20 mg PO DAILY 10/02/23 [History Confirmed 10/02/23] Allergies/Adverse Reactions: Allergies Allergy/AdvReac Type Severity Reaction Status Date / Time No Known Drug Allergies Allergy Verified 10/02/23 00:12 - Past Medical History Past Medical History: Yes Neurological History: No Pertinent History ENT History: No Pertinent History Cardiac History: Aneurysm, High Cholesterol, Hypertension Respiratory History: COPD, Sleep Apnea Endocrine Medical History: No Pertinent History Musculoskelatal History: No Pertinent History GI Medical History: Diverticulitis, GERD, Hernia History: No Pertinent History Pyscho-Social History: No Pertinent History Male Reproductive Disorders: No Pertinent History - Past Surgical History Past Surgical History: Yes Neuro Surgical History: No Pertinent History Cardiac History: No Pertinent History Respiratory Surgery: No Pertinent History GI Surgical History: Hernia Repair Genitourinary Surgical Hx: No Pertinent History Musculskeletal Surgical Hx: Orthopedic Surgery Male Surgical History: No Pertinent History Other Surgical History: Left ankle. - Social History Smoking Status: Former smoker Exposure to second hand smoke: No Alcohol: Rarely Drug Use: none - Social Determinants of Health Will the patient participate in the screening: Declined to provide - Physical Exam Vital Signs: Vital Signs - 24 hr Temp Pulse Resp BP BP Pulse Ox 10/01/23 23:04 98 H 13 106/66 94 L 10/01/23 23:00 97 H 14 88/67 93 L 10/01/23 22:53 94 L 10/01/23 22:45 99 H 18 96/63 93 L 10/01/23 22:40 95 H 19 92 L 10/01/23 22:33 99 H 12 10/01/23 22:15 97 H 28 H 120/65 10/01/23 22:01 95 H 19 122/59 93 L 10/01/23 21:45 95 H 28 H 114/56 93 L 10/01/23 21:30 97 H 17 118/63 93 L 10/01/23 21:15 95 H 15 110/62 10/01/23 21:01 97 H 16 94/48 93 L 10/01/23 20:45 95 H 16 120/66 94 L 10/01/23 20:30 93 H 20 110/84 93 L 10/01/23 20:15 90 16 118/64 94 L 10/01/23 20:00 96 H 22 106/73 91 L 10/01/23 19:45 91 H 16 122/64 92 L 10/01/23 19:31 87 19 107/80 93 L 10/01/23 19:15 89 5 L 116/70 90 L 10/01/23 19:00 115/62 90 L 10/01/23 18:45 96 H 20 98/59 92 L 10/01/23 18:30 97 H 18 108/66 91 L 10/01/23 18:15 100 H 23 104/65 93 L 10/01/23 18:08 97.8 F 99 H 22 127/58 94 L GEN: Lying in bed in no acute distress NEURO: No focal deficits CV: Regular rate & rhythm, no murmurs, no edema PULM: Clear to auscultation bilaterally, no work of breathing, on room air ABD: Soft, non-distended, normoactive bowel sounds PSYCH: Alert, oriented x3 Results - Labs Lab/Micro Results: Lab Results-Last 24 Hours 10/01/23 10/01/23 10/01/23 Range/Units 18:20 18:20 18:20 WBC 9.1 (4.0-10.5) x10^3/uL RBC 4.52 (4.1-5.6) x10^6/uL Hgb 13.5 (12.5-18.0) g/dL Hct 41.6 L (42-50) % MCV 92.0 (78-100) fL MCH 29.9 (26-32) pg MCHC 32.5 (32-36) g/dL RDW 14.1 H (11.5-14.0) % Plt Count 313 (150-450) x10^3/uL MPV 9.2 (7.5-11.0) fL Gran % 69.1 H (36.0-66.0) % Immature Gran % (Auto) 0.2 (0.00-0.4) % Nucleat RBC Rel Count 0.0 (0.00-0.1) % Eos # (Auto) 0.21 (0-0.5) x10^3/uL Immature Gran # (Auto) 0.02 (0.00-0.03) x10^3u/L Absolute Lymphs (auto) 1.69 (1.0-4.6) x10^3/uL Absolute Monos (auto) 0.88 (0.0-1.3) x10^3/uL Absolute Nucleated RBC 0.00 (0.00-0.01) x10^3u/L Lymphocytes % 18.5 L (24.0-44.0) % Monocytes % 9.6 (0.0-12.0) % Eosinophils % 2.3 (0.00-5.0) % Basophils % 0.3 (0.0-0.4) % Absolute Granulocytes 6.31 (1.4-6.9) x10^3/uL Basophils # 0.03 (0-0.4) x10^3/uL Sodium 138 (135-145) mmol/L Potassium 4.0 (3.5-5.1) mmol/L Chloride 103 (98-107) mmol/L Carbon Dioxide 26 (22-30) mmol/L Anion Gap 12.1 (5-15) MEQ/L BUN 43 H (9-20) mg/dL Creatinine 1.78 H (0.66-1.25) mg/dL Estimated GFR 39.3 ML/MIN Glucose 116 H (74-106) mg/dL Lactic Acid (0.4-2.0) Calcium 8.8 (8.4-10.2) mg/dL Magnesium 2.6 H (1.6-2.3) mg/dL Total Bilirubin 1.80 H (0.2-1.3) mg/dL AST 28 (17-59) U/L ALT 28 (0-50) U/L Alkaline Phosphatase 101 (38-126) U/L Troponin I < 0.012 (0.000-0.033) ng/mL Serum Total Protein 7.5 (6.3-8.2) g/dL Albumin 4.3 (3.5-5.0) g/dL Lipase 56 (23-300) U/L Urine Color (Yellow) Urine Appearance (Clear) Urine pH (4.6-8.0) Ur Specific [place] (1.005-1.030) Urine Protein (Negative) Urine Glucose (UA) (Negative) mg/dL Urine Ketones (Negative) Urine Blood (Negative) Urine Nitrite (Negative) Urine Bilirubin (Negative) Urine Urobilinogen (0.2) mg/dL Ur Leukocyte Esterase (Negative) U Hyaline Cast (Auto) (0-2) /LPF Urine Microscopic RBC (0-5) /HPF Urine Microscopic WBC (0-5) /HPF Ur Epithelial Cells (None Seen) /HPF Urine Bacteria (None Seen) /HPF Urine Culture Reflexed (NO) 10/01/23 10/01/23 10/01/23 Range/Units 18:25 21:10 22:31 WBC (4.0-10.5) x10^3/uL RBC (4.1-5.6) x10^6/uL Hgb (12.5-18.0) g/dL Hct (42-50) % MCV (78-100) fL MCH (26-32) pg MCHC (32-36) g/dL RDW (11.5-14.0) % Plt Count (150-450) x10^3/uL MPV (7.5-11.0) fL Gran % (36.0-66.0) % Immature Gran % (Auto) (0.00-0.4) % Nucleat RBC Rel Count (0.00-0.1) % Eos # (Auto) (0-0.5) x10^3/uL Immature Gran # (Auto) (0.00-0.03) x10^3u/L Absolute Lymphs (auto) (1.0-4.6) x10^3/uL Absolute Monos (auto) (0.0-1.3) x10^3/uL Absolute Nucleated RBC (0.00-0.01) x10^3u/L Lymphocytes % (24.0-44.0) % Monocytes % (0.0-12.0) % Eosinophils % (0.00-5.0) % Basophils % (0.0-0.4) % Absolute Granulocytes (1.4-6.9) x10^3/uL Basophils # (0-0.4) x10^3/uL Sodium (135-145) mmol/L Potassium (3.5-5.1) mmol/L Chloride (98-107) mmol/L Carbon Dioxide (22-30) mmol/L Anion Gap (5-15) MEQ/L BUN (9-20) mg/dL Creatinine (0.66-1.25) mg/dL Estimated GFR ML/MIN Glucose (74-106) mg/dL Lactic Acid 1.4 (0.4-2.0) Calcium (8.4-10.2) mg/dL Magnesium (1.6-2.3) mg/dL Total Bilirubin (0.2-1.3) mg/dL AST (17-59) U/L ALT (0-50) U/L Alkaline Phosphatase (38-126) U/L Troponin I < 0.012 (0.000-0.033) ng/mL Serum Total Protein (6.3-8.2) g/dL Albumin (3.5-5.0) g/dL Lipase (23-300) U/L Urine Color Dark Yellow (Yellow) Urine Appearance Cloudy A (Clear) Urine pH 5.0 (4.6-8.0) Ur Specific [place] 1.020 (1.005-1.030) Urine Protein 30 (Negative) Urine Glucose (UA) Negative (Negative) mg/dL Urine Ketones Trace A (Negative) Urine Blood Negative (Negative) Urine Nitrite Negative (Negative) Urine Bilirubin Negative (Negative) Urine Urobilinogen 1.0 A (0.2) mg/dL Ur Leukocyte Esterase Trace A (Negative) U Hyaline Cast (Auto) 6-10 A (0-2) /LPF Urine Microscopic RBC 3-5 (0-5) /HPF Urine Microscopic WBC 0-2 (0-5) /HPF Ur Epithelial Cells Few (None Seen) /HPF Urine Bacteria None Seen (None Seen) /HPF Urine Culture Reflexed NO (NO) - Radiology Impressions Radiology Exams & Impressions: Radiology Procedures Category Date Time Status ABDOMEN AND PELVIS W/0 CONTRAS [CT] Stat Exams 10/01/23 19:[address] Abd/Pelvis - no acute changes Assessment/Plan (1) REBECCA (acute kidney injury) Current Visit: No Status: Acute Assessment & Plan: 73 y/o M with h/o HTN, HLP, here with REBECCA secondary to hypovolemia from gastroenteritis ## Acute kidney injury - likely ATN from hypovolemia, with poor urine output. Last baseline Cr 1, now up to 1.8. - given 500 ml bolus in ED - continuous NS at 125 ml/hr - repeat BMP in AM ## Gastroenteritis - with nausea, vomiting, bloating abdominal pain, and diarrhea. Now improving, but leading to hypovolemia above from poor PO intake. - PRN Zofran, APAP - place on regular diet now, but can consider bland or liquid diet if not tolerating due to nausea ## Hypertension - BP lower currently secondary to hypovolemia - hold home losartan and lasix due to hypovolemia above ## dyslipidemia - continue home atorvastatin Code status: DNR Prophylaxis: short stay, no pharmacologic prophylaxis needed, encourage ambulation Diet: Regular Code(s): N17.9 - ACUTE KIDNEY FAILURE, UNSPECIFIED Telemedicine Encounter - Telemedicine Encounter Telemedicine Encounter: The entirety of this encounter was performed via Telemedicine"
[2023-10-02 05:47] LABS: Hematocrit 37.3 % (42-50); Mean Cell Volume 93.5 fL (78-100); Mean Corpuscular Hemoglobin 30.1 pg (26-32); Mean Corpuscular Hgb Concent. 32.2 g/dL (32-36); Mean Platelet Volume 9.2 fL (7.5-11.0); Platelet Count 235 x10^3/uL (150-450); Red Blood Count 3.99 x10^6/uL (4.1-5.6); Red Cell Distribution Width 14.4 % (11.5-14.0); White Blood Count 8.1 x10^3/uL (4.0-10.5)
[2023-10-02 06:05] LABS: ANION GAP 9.2 MEQ/L (5-15); Calcium 8.2 mg/dL (8.4-10.2); Creatinine 1 1.51 mg/dL (0.66-1.25); EST GLOMERULAR FILTRATION RATE 47.9 ML/MIN; Potassium 3.8 mmol/L (3.5-5.1)
[2023-10-02] MEDS: VENTOLIN COMMON CANISTER IH SCH (07:17)
[2023-10-02] MEDS ORDERED: MEDICATION INTERVENTION MC SCH (07:45)
--- NOTE | 2023-10-02 07:47 | PCM.NOTE ---
Date and Time: 10/02/23 0742 Subjective Assessment: 73 y/o M with h/o HTN, dyslipidemia, COPD, GEMA (CPAP), admitted 10/01/23 with gastroenteritis/REBECCA -secondary to hypovolemia after experiencing three days of severe nausea and vomiting, associated with sharp moderate midepigastric abdominal pain/distention, and multiple episodes of watery diarrhea. No signifi cant acute abnormality is noted on CT of the abdomen/pelvis. REBECCA improving overnight with IVF. 10/02/23 Met with patient bedside. Endorses no further vomiting but continues with nausea, abdominal pain/distention, and diarrhea. Patient reports that he has these episodes at least once a year and has been hospitalized previously. I have reviewed previous records for a hospitalization in 2020 for partial small bowel obstruction that was treated conservatively. No evidence of obstruction on CT performed 10/01/23. REBECCA is improving. May need GI workup if no improvement. Denies fever,cough, sob, cp, GIL, or dizziness. - Review of Systems Constitutional: No Symptoms Eyes: No Symptoms Ears, Nose, & Throat: No Symptoms Respiratory: Short Of Breath Cardiac: No Symptoms Abdominal/Gastrointestinal: Abdominal Pain, Nausea, Vomiting, Diarrhea Genitourinary Symptoms: Hesitancy Musculoskeletal: No Symptoms Skin: No Symptoms Neurological: No Symptoms Psychological: No Symptoms Endocrine: No Symptoms Hematologic/Lymphatic: No Symptoms Immunological/Allergic: No Symptoms Objective Exam General Appearance: no apparent distress Neurologic Exam: alert, oriented x 3, cooperative Skin Exam: normal color Eye Exam: PERRL Ears, Nose, Throat Exam: normal ENT inspection Neck Exam: normal inspection Respiratory Exam: crackles/rales Cardiovascular Exam: regular rate/rhythm, normal heart sounds Gastrointestinal/Abdomen Exam: soft, normal bowel sounds Extremity Exam: normal inspection Back Exam: normal inspection Male Genitalia Exam: deferred Rectal Exam: deferred Objective Data Vital Signs: Vital Signs - 24 hr Temp Pulse Resp BP BP Pulse Ox 10/02/23 07:17 87 16 91 L 10/02/23 04:00 97.4 F 74 16 111/55 89 L 10/02/23 01:02 92 H 18 88 L 10/01/23 23:52 98.2 F 99 H 20 121/63 89 L 10/01/23 23:04 98 H 13 106/66 94 L 10/01/23 23:00 97 H 14 88/67 93 L 10/01/23 22:53 94 L 10/01/23 22:45 99 H 18 96/63 93 L 10/01/23 22:40 95 H 19 92 L 10/01/23 22:33 99 H 12 10/01/23 22:15 97 H 28 H 120/65 10/01/23 22:01 95 H 19 122/59 93 L 10/01/23 21:45 95 H 28 H 114/56 93 L 10/01/23 21:30 97 H 17 118/63 93 L 10/01/23 21:15 95 H 15 110/62 10/01/23 21:01 97 H 16 94/48 93 L 10/01/23 20:45 95 H 16 120/66 94 L 10/01/23 20:30 93 H 20 110/84 93 L 10/01/23 20:15 90 16 118/64 94 L 10/01/23 20:00 96 H 22 106/73 91 L 10/01/23 19:45 91 H 16 122/64 92 L 10/01/23 19:31 87 19 107/80 93 L 10/01/23 19:15 89 5 L 116/70 90 L 10/01/23 19:00 115/62 90 L 10/01/23 18:45 96 H 20 98/59 92 L 10/01/23 18:30 97 H 18 108/66 91 L 10/01/23 18:15 100 H 23 104/65 93 L 10/01/23 18:08 97.8 F 99 H 22 127/58 94 L Pain Assessment - Last Documented Pain Intensity 2 Intake and Output: Intake & Output 09/29/23 09/30/23 10/01/23 10/02/23 11:59 11:59 11:59 11:59 Intake Total 1019 Output Total 200 Balance 819 Weight 121.1 kg Lab Results: Lab Results-Last 24 Hours 10/01/23 10/01/23 10/01/23 Range/Units 18:20 18:20 18:20 WBC 9.1 (4.0-10.5) x10^3/uL RBC 4.52 (4.1-5.6) x10^6/uL Hgb 13.5 (12.5-18.0) g/dL Hct 41.6 L (42-50) % MCV 92.0 (78-100) fL MCH 29.9 (26-32) pg MCHC 32.5 (32-36) g/dL RDW 14.1 H (11.5-14.0) % Plt Count 313 (150-450) x10^3/uL MPV 9.2 (7.5-11.0) fL Gran % 69.1 H (36.0-66.0) % Immature Gran % (Auto) 0.2 (0.00-0.4) % Nucleat RBC Rel Count 0.0 (0.00-0.1) % Eos # (Auto) 0.21 (0-0.5) x10^3/uL Immature Gran # (Auto) 0.02 (0.00-0.03) x10^3u/L Absolute Lymphs (auto) 1.69 (1.0-4.6) x10^3/uL Absolute Monos (auto) 0.88 (0.0-1.3) x10^3/uL Absolute Nucleated RBC 0.00 (0.00-0.01) x10^3u/L Lymphocytes % 18.5 L (24.0-44.0) % Monocytes % 9.6 (0.0-12.0) % Eosinophils % 2.3 (0.00-5.0) % Basophils % 0.3 (0.0-0.4) % Absolute Granulocytes 6.31 (1.4-6.9) x10^3/uL Basophils # 0.03 (0-0.4) x10^3/uL Sodium 138 (135-145) mmol/L Potassium 4.0 (3.5-5.1) mmol/L Chloride 103 (98-107) mmol/L Carbon Dioxide 26 (22-30) mmol/L Anion Gap 12.1 (5-15) MEQ/L BUN 43 H (9-20) mg/dL Creatinine 1.78 H (0.66-1.25) mg/dL Estimated GFR 39.3 ML/MIN Glucose 116 H (74-106) mg/dL Lactic Acid (0.4-2.0) Calcium 8.8 (8.4-10.2) mg/dL Magnesium 2.6 H (1.6-2.3) mg/dL Total Bilirubin 1.80 H (0.2-1.3) mg/dL AST 28 (17-59) U/L ALT 28 (0-50) U/L Alkaline Phosphatase 101 (38-126) U/L Troponin I < 0.012 (0.000-0.033) ng/mL Serum Total Protein 7.5 (6.3-8.2) g/dL Albumin 4.3 (3.5-5.0) g/dL Lipase 56 (23-300) U/L Urine Color (Yellow) Urine Appearance (Clear) Urine pH (4.6-8.0) Ur Specific [place] (1.005-1.030) Urine Protein (Negative) Urine Glucose (UA) (Negative) mg/dL Urine Ketones (Negative) Urine Blood (Negative) Urine Nitrite (Negative) Urine Bilirubin (Negative) Urine Urobilinogen (0.2) mg/dL Ur Leukocyte Esterase (Negative) U Hyaline Cast (Auto) (0-2) /LPF Urine Microscopic RBC (0-5) /HPF Urine Microscopic WBC (0-5) /HPF Ur Epithelial Cells (None Seen) /HPF Urine Bacteria (None Seen) /HPF Urine Culture Reflexed (NO) 10/01/23 10/01/23 10/01/23 Range/Units 18:25 21:10 22:31 WBC (4.0-10.5) x10^3/uL RBC (4.1-5.6) x10^6/uL Hgb (12.5-18.0) g/dL Hct (42-50) % MCV (78-100) fL MCH (26-32) pg MCHC (32-36) g/dL RDW (11.5-14.0) % Plt Count (150-450) x10^3/uL MPV (7.5-11.0) fL Gran % (36.0-66.0) % Immature Gran % (Auto) (0.00-0.4) % Nucleat RBC Rel Count (0.00-0.1) % Eos # (Auto) (0-0.5) x10^3/uL Immature Gran # (Auto) (0.00-0.03) x10^3u/L Absolute Lymphs (auto) (1.0-4.6) x10^3/uL Absolute Monos (auto) (0.0-1.3) x10^3/uL Absolute Nucleated RBC (0.00-0.01) x10^3u/L Lymphocytes % (24.0-44.0) % Monocytes % (0.0-12.0) % Eosinophils % (0.00-5.0) % Basophils % (0.0-0.4) % Absolute Granulocytes (1.4-6.9) x10^3/uL Basophils # (0-0.4) x10^3/uL Sodium (135-145) mmol/L Potassium (3.5-5.1) mmol/L Chloride (98-107) mmol/L Carbon Dioxide (22-30) mmol/L Anion Gap (5-15) MEQ/L BUN (9-20) mg/dL Creatinine (0.66-1.25) mg/dL Estimated GFR ML/MIN Glucose (74-106) mg/dL Lactic Acid 1.4 (0.4-2.0) Calcium (8.4-10.2) mg/dL Magnesium (1.6-2.3) mg/dL Total Bilirubin (0.2-1.3) mg/dL AST (17-59) U/L ALT (0-50) U/L Alkaline Phosphatase (38-126) U/L Troponin I < 0.012 (0.000-0.033) ng/mL Serum Total Protein (6.3-8.2) g/dL Albumin (3.5-5.0) g/dL Lipase (23-300) U/L Urine Color Dark Yellow (Yellow) Urine Appearance Cloudy A (Clear) Urine pH 5.0 (4.6-8.0) Ur Specific [place] 1.020 (1.005-1.030) Urine Protein 30 (Negative) Urine Glucose (UA) Negative (Negative) mg/dL Urine Ketones Trace A (Negative) Urine Blood Negative (Negative) Urine Nitrite Negative (Negative) Urine Bilirubin Negative (Negative) Urine Urobilinogen 1.0 A (0.2) mg/dL Ur Leukocyte Esterase Trace A (Negative) U Hyaline Cast (Auto) 6-10 A (0-2) /LPF Urine Microscopic RBC 3-5 (0-5) /HPF Urine Microscopic WBC 0-2 (0-5) /HPF Ur Epithelial Cells Few (None Seen) /HPF Urine Bacteria None Seen (None Seen) /HPF Urine Culture Reflexed NO (NO) 10/02/23 10/02/23 Range/Units 05:37 05:37 WBC 8.1 (4.0-10.5) x10^3/uL RBC 3.99 L (4.1-5.6) x10^6/uL Hgb 12.0 L (12.5-18.0) g/dL Hct 37.3 L (42-50) % MCV 93.5 (78-100) fL MCH 30.1 (26-32) pg MCHC 32.2 (32-36) g/dL RDW 14.4 H (11.5-14.0) % Plt Count 235 (150-450) x10^3/uL MPV 9.2 (7.5-11.0) fL Gran % (36.0-66.0) % Immature Gran % (Auto) (0.00-0.4) % Nucleat RBC Rel Count (0.00-0.1) % Eos # (Auto) (0-0.5) x10^3/uL Immature Gran # (Auto) (0.00-0.03) x10^3u/L Absolute Lymphs (auto) (1.0-4.6) x10^3/uL Absolute Monos (auto) (0.0-1.3) x10^3/uL Absolute Nucleated RBC (0.00-0.01) x10^3u/L Lymphocytes % (24.0-44.0) % Monocytes % (0.0-12.0) % Eosinophils % (0.00-5.0) % Basophils % (0.0-0.4) % Absolute Granulocytes (1.4-6.9) x10^3/uL Basophils # (0-0.4) x10^3/uL Sodium 138 (135-145) mmol/L Potassium 3.8 (3.5-5.1) mmol/L Chloride 106 (98-107) mmol/L Carbon Dioxide 27 (22-30) mmol/L Anion Gap 9.2 (5-15) MEQ/L BUN 41 H (9-20) mg/dL Creatinine 1.51 H (0.66-1.25) mg/dL Estimated GFR 47.9 ML/MIN Glucose 101 (74-106) mg/dL Lactic Acid (0.4-2.0) Calcium 8.2 L (8.4-10.2) mg/dL Magnesium (1.6-2.3) mg/dL Total Bilirubin (0.2-1.3) mg/dL AST (17-59) U/L ALT (0-50) U/L Alkaline Phosphatase (38-126) U/L Troponin I (0.000-0.033) ng/mL Serum Total Protein (6.3-8.2) g/dL Albumin (3.5-5.0) g/dL Lipase (23-300) U/L Urine Color (Yellow) Urine Appearance (Clear) Urine pH (4.6-8.0) Ur Specific [place] (1.005-1.030) Urine Protein (Negative) Urine Glucose (UA) (Negative) mg/dL Urine Ketones (Negative) Urine Blood (Negative) Urine Nitrite (Negative) Urine Bilirubin (Negative) Urine Urobilinogen (0.2) mg/dL Ur Leukocyte Esterase (Negative) U Hyaline Cast (Auto) (0-2) /LPF Urine Microscopic RBC (0-5) /HPF Urine Microscopic WBC (0-5) /HPF Ur Epithelial Cells (None Seen) /HPF Urine Bacteria (None Seen) /HPF Urine Culture Reflexed (NO) Radiology Exams: Radiology Procedures Category Date Time Status ABDOMEN AND PELVIS W/0 CONTRAS [CT] Stat Exams 10/01/23 19:55 Completed Assessment/Plan (1) Gastroenteritis Current Visit: Yes Status: Acute Assessment & Plan: -CT abdomen with no acute findings -Diverticulosis coli without diverticulitis -Supportive therapies with anti-emetics, IVF, APAP -ADAT -Consider surgery consult for GI eval if no improvement Code(s): K52.9 - NONINFECTIVE GASTROENTERITIS AND COLITIS, UNSPECIFIED (2) Hypertension Current Visit: Yes Status: Acute Assessment & Plan: -Hold home meds due to hypotension, can resume when stable Code(s): I10 - ESSENTIAL (PRIMARY) HYPERTENSION (3) Dyslipidemia Current Visit: Yes Status: Acute Assessment & Plan: -continue home atrovastatin Code(s): E78.5 - HYPERLIPIDEMIA, UNSPECIFIED (4) REBECCA (acute kidney injury) Current Visit: No Status: Acute Assessment & Plan: -Most likely pre-renal insufficiency from dehydration -Improving with IVF -Monitor renal/lytes -AVOID PINKY/ARB/NSAIDS/Diuretics -improving, baseline around 1, now at 1.51<1.78 Code status: DNR Prophylaxis: short stay, no pharmacologic prophylaxis needed, encourage ambulation Diet: Regular Code(s): N17.9 - ACUTE KIDNEY FAILURE, UNSPECIFIED
[2023-10-02] MEDS: ZOCOR 20MG PO SCH (09:38)
[2023-10-02] MEDS: Protonix 40MG Tablet PO SCH (09:38)
[2023-10-02] MEDS ORDERED: LIPITOR 40MG PO SCH (10:00)
[2023-10-02] MEDS ORDERED: NON-FORMULARY ITEM (Omeprazole Magnesium [Prilosec Otc] 20 MG Tablet.Dr) PO SCH (10:00)
[2023-10-02] MEDS ORDERED: NON-FORMULARY ITEM (Fluticasone/Umeclidin/Vilanter [Trelegy Ellipta 100-62.5-25] 1 EACH Bl IH SCH (10:00)
--- NOTE | 2023-10-02 15:08 | XRAY ---
CLINICAL HISTORY: shortness of breath COMPARISON: None. TECHNIQUE: X-ray examination of the chest is performed in AP portable 1 view. FINDINGS: Enlarged heart size despite AP view. Inhomogenous shadowing right lower zone and obscuration of the right diaphragm and right costophrenic angle. Left cardiophrenic and costophrenic angles are clear. Hilar shadows normal. Visualized bones are intact. IMPRESSION: 1. Enlarged heart size despite AP view. 2. Right mid and lower zone pulmonary infiltration and mild to moderate right pleural effusion. Ultrasound correlation is suggested. [facility] ER was called at [phone] at 01:57 AM S[employer]IOR DES[employer] ENG[employer], 10/02/2023 and results were verbally communicated to Dr Carvalho Electronically Signed by: Brittnee Salinas MD. (10/02/2023 15:03:44 EDT)
[2023-10-02 16:12] LABS: NT PRO BNPII 39.9 pg/mL (<300); PROCALCITONIN 0.106 ng/mL (0.030-0.080)
[2023-10-02 16:27] LABS: ALBUMIN 3.5 g/dL (3.5-5.0); ANION GAP 9.7 MEQ/L (5-15); BILIRUBIN,TOTAL 0.9 mg/dL (0.2-1.3); Calcium 8.3 mg/dL (8.4-10.2); Creatinine 1 1.17 mg/dL (0.66-1.25); Potassium 4.3 mmol/L (3.5-5.1); Total Protein 6.4 g/dL (6.3-8.2)
[2023-10-02] MEDS: Lasix 40 MG/4 ML IV ONE (16:37)
[2023-10-03 05:04] LABS: Absolute Neutrophil Ct (ANC) 5.29 x10^3/uL (1.4-6.9); BASOPHIL % 0.3 % (0.0-0.4); Basophil (Absolute #) 0.02 x10^3/uL (0-0.4); Eosinophil % 2.7 % (0.00-5.0); Eosinophil (Absolute #) 0.21 x10^3/uL (0-0.5); Hematocrit 38.5 % (42-50); Hemoglobin 12.1 g/dL (12.5-18.0); IMMATURE GRAN # 0.04 x10^3u/L (0.00-0.03); IMMATURE GRAN % 0.5 % (0.00-0.4); Lymphocyte (Absolute #) 1.57 x10^3/uL (1.0-4.6); Mean Cell Volume 92.8 fL (78-100); Mean Corpuscular Hemoglobin 29.2 pg (26-32); Mean Corpuscular Hgb Concent. 31.4 g/dL (32-36); Mean Platelet Volume 9.4 fL (7.5-11.0); Monocyte (Absolute #) 0.73 x10^3/uL (0.0-1.3); Monocytes % 9.3 % (0.0-12.0); Neutrophil % 67.2 % (36.0-66.0); Platelet Count 240 x10^3/uL (150-450); Red Blood Count 4.15 x10^6/uL (4.1-5.6); Red Cell Distribution Width 14.3 % (11.5-14.0); White Blood Count 7.9 x10^3/uL (4.0-10.5)
[2023-10-03 05:14] LABS: ALBUMIN 3.7 g/dL (3.5-5.0); ANION GAP 8.7 MEQ/L (5-15); Calcium 8.6 mg/dL (8.4-10.2); Creatinine 1 1.08 mg/dL (0.66-1.25); EST GLOMERULAR FILTRATION RATE 71.6 ML/MIN; Potassium 3.9 mmol/L (3.5-5.1); Total Protein 6.6 g/dL (6.3-8.2)
[2023-10-03] MEDS: PATIENT OWN MEDICATION IH SCH (06:44)
[2023-10-03] MEDS: VENTOLIN COMMON CANISTER IH SCH (06:44)
[2023-10-03 07:15] VITALS: RESP 16; TEMP 97.7
[2023-10-03 08:26] LABS: INR 0.98 (0.8-3.0); PROTIME 10.7 SECONDS (9.4-12.5)
[2023-10-03 11:43] VITALS: BP 166/86; PULSE 85; O2SAT 93
[2023-10-03] MEDS: Cozaar 50 MG PO SCH (11:46)
--- NOTE | 2023-10-03 12:17 | PCM.DS ---
Discharge Summary Date of Admission: 10/01/23 23:31 Date of Discharge: 10/03/23 Admitting Physician: HERMAN DUNN MD Primary Care Provider: NO FAMILY DOCTOR Allergies Allergies No Known Drug Allergies Allergy (Verified 10/02/23 00:12) Hospital Summary - Hospital Course Hospital Course: 73 y/o M with h/o HTN, dyslipidemia, COPD, GEMA (CPAP), admitted 10/01/23 with gastroenteritis/REBECCA -secondary to hypovolemia after experiencing three days of severe nausea and vomiting, associated with sharp moderate midepigastric abdominal pain/distention, and multiple episodes of watery diarrhea. No significant acute abnormality is noted on CT of the abdomen/pelvis. REBECCA improved with IVF. Endorses no further Nausea/vomiting, abdominal pain, and diarrhea. Patient reports that he has these episodes at least once a year and has been hospitalized previously. I have reviewed previous records for a hospitalization in 2020 for partial small bowel obstruction that was treated conservatively. No evidence of obstruction on CT performed 10/01/23. Will need OP F/U for EGD/ colonoscopy. Thoracentesis ordered yesterday but cancelled today as per CT this has resolved and pt is room air 95%. Echo shows EF 62%. He denies CP, SOB, abd. pain, N/V/D. - Vitals & Intake/Output Vital Signs: Vital Signs Temperature 97.7 F 10/03/23 11:42 Pulse Rate 85 10/03/23 11:42 Respiratory Rate 16 10/03/23 11:42 Blood Pressure 166/86 10/03/23 11:42 O2 Sat by Pulse Oximetry 93 L 10/03/23 11:42 Intake & Output: Intake & Output 10/01/23 10/02/23 10/03/23 10/04/23 11:59 11:59 11:59 11:59 Intake Total 1139 2836 Output Total 575 1650 Balance 564 1186 Weight 121.1 kg 121.1 kg - Lab Result Diagrams: 10/03/23 04:40 10/03/23 04:40 Lab Results-Last 24 Hrs: Lab Results-Last 24 Hours 10/02/23 10/02/23 10/03/23 Range/Units 05:48 16:15 04:40 WBC 7.9 (4.0-10.5) x10^3/uL RBC 4.15 (4.1-5.6) x10^6/uL Hgb 12.1 L (12.5-18.0) g/dL Hct 38.5 L (42-50) % MCV 92.8 (78-100) fL MCH 29.2 (26-32) pg MCHC 31.4 L (32-36) g/dL RDW 14.3 H (11.5-14.0) % Plt Count 240 (150-450) x10^3/uL MPV 9.4 (7.5-11.0) fL Gran % 67.2 H (36.0-66.0) % Immature Gran % (Auto) 0.5 H (0.00-0.4) % Nucleat RBC Rel Count 0.0 (0.00-0.1) % Eos # (Auto) 0.21 (0-0.5) x10^3/uL Immature Gran # (Auto) 0.04 H (0.00-0.03) x10^3u/L Absolute Lymphs (auto) 1.57 (1.0-4.6) x10^3/uL Absolute Monos (auto) 0.73 (0.0-1.3) x10^3/uL Absolute Nucleated RBC 0.00 (0.00-0.01) x10^3u/L Lymphocytes % 20.0 L (24.0-44.0) % Monocytes % 9.3 (0.0-12.0) % Eosinophils % 2.7 (0.00-5.0) % Basophils % 0.3 (0.0-0.4) % Absolute Granulocytes 5.29 (1.4-6.9) x10^3/uL Basophils # 0.02 (0-0.4) x10^3/uL PT (9.4-12.5) SECONDS INR (0.8-3.0) Sodium 142 (135-145) mmol/L Potassium 4.3 (3.5-5.1) mmol/L Chloride 108 H (98-107) mmol/L Carbon Dioxide 28 (22-30) mmol/L Anion Gap 9.7 (5-15) MEQ/L BUN 29 H (9-20) mg/dL Creatinine 1.17 (0.66-1.25) mg/dL Estimated GFR 65.0 ML/MIN Glucose 118 H (74-106) mg/dL Hemoglobin A1c (4.5-6.0) % Calcium 8.3 L (8.4-10.2) mg/dL Total Bilirubin 0.90 (0.2-1.3) mg/dL AST 19 (17-59) U/L ALT 22 (0-50) U/L Alkaline Phosphatase 87 (38-126) U/L Lactate Dehydrogenase (120-246) U/L NT-Pro-B Natriuret Pep 39.9 (<300) pg/mL Serum Total Protein 6.4 (6.3-8.2) g/dL Albumin 3.5 (3.5-5.0) g/dL Procalcitonin 0.106 H (0.030-0.080) ng/mL 10/03/23 10/03/23 10/03/23 Range/Units 04:40 04:40 04:40 WBC (4.0-10.5) x10^3/uL RBC (4.1-5.6) x10^6/uL Hgb (12.5-18.0) g/dL Hct (42-50) % MCV (78-100) fL MCH (26-32) pg MCHC (32-36) g/dL RDW (11.5-14.0) % Plt Count (150-450) x10^3/uL MPV (7.5-11.0) fL Gran % (36.0-66.0) % Immature Gran % (Auto) (0.00-0.4) % Nucleat RBC Rel Count (0.00-0.1) % Eos # (Auto) (0-0.5) x10^3/uL Immature Gran # (Auto) (0.00-0.03) x10^3u/L Absolute Lymphs (auto) (1.0-4.6) x10^3/uL Absolute Monos (auto) (0.0-1.3) x10^3/uL Absolute Nucleated RBC (0.00-0.01) x10^3u/L Lymphocytes % (24.0-44.0) % Monocytes % (0.0-12.0) % Eosinophils % (0.00-5.0) % Basophils % (0.0-0.4) % Absolute Granulocytes (1.4-6.9) x10^3/uL Basophils # (0-0.4) x10^3/uL PT (9.4-12.5) SECONDS INR (0.8-3.0) Sodium 141 (135-145) mmol/L Potassium 3.9 (3.5-5.1) mmol/L Chloride 105 (98-107) mmol/L Carbon Dioxide 31 H (22-30) mmol/L Anion Gap 8.7 (5-15) MEQ/L BUN 23 H (9-20) mg/dL Creatinine 1.08 (0.66-1.25) mg/dL Estimated GFR 71.6 ML/MIN Glucose 109 H (74-106) mg/dL Hemoglobin A1c 5.77 (4.5-6.0) % Calcium 8.6 (8.4-10.2) mg/dL Total Bilirubin 1.00 (0.2-1.3) mg/dL AST 19 (17-59) U/L ALT 21 (0-50) U/L Alkaline Phosphatase 90 (38-126) U/L Lactate Dehydrogenase 200 (120-246) U/L NT-Pro-B Natriuret Pep (<300) pg/mL Serum Total Protein 6.6 (6.3-8.2) g/dL Albumin 3.7 (3.5-5.0) g/dL Procalcitonin (0.030-0.080) ng/mL 10/03/23 Range/Units 04:40 WBC (4.0-10.5) x10^3/uL RBC (4.1-5.6) x10^6/uL Hgb (12.5-18.0) g/dL Hct (42-50) % MCV (78-100) fL MCH (26-32) pg MCHC (32-36) g/dL RDW (11.5-14.0) % Plt Count (150-450) x10^3/uL MPV (7.5-11.0) fL Gran % (36.0-66.0) % Immature Gran % (Auto) (0.00-0.4) % Nucleat RBC Rel Count (0.00-0.1) % Eos # (Auto) (0-0.5) x10^3/uL Immature Gran # (Auto) (0.00-0.03) x10^3u/L Absolute Lymphs (auto) (1.0-4.6) x10^3/uL Absolute Monos (auto) (0.0-1.3) x10^3/uL Absolute Nucleated RBC (0.00-0.01) x10^3u/L Lymphocytes % (24.0-44.0) % Monocytes % (0.0-12.0) % Eosinophils % (0.00-5.0) % Basophils % (0.0-0.4) % Absolute Granulocytes (1.4-6.9) x10^3/uL Basophils # (0-0.4) x10^3/uL PT 10.7 (9.4-12.5) SECONDS INR 0.98 (0.8-3.0) Sodium (135-145) mmol/L Potassium (3.5-5.1) mmol/L Chloride (98-107) mmol/L Carbon Dioxide (22-30) mmol/L Anion Gap (5-15) MEQ/L BUN (9-20) mg/dL Creatinine (0.66-1.25) mg/dL Estimated GFR ML/MIN Glucose (74-106) mg/dL Hemoglobin A1c (4.5-6.0) % Calcium (8.4-10.2) mg/dL Total Bilirubin (0.2-1.3) mg/dL AST (17-59) U/L ALT (0-50) U/L Alkaline Phosphatase (38-126) U/L Lactate Dehydrogenase (120-246) U/L NT-Pro-B Natriuret Pep (<300) pg/mL Serum Total Protein (6.3-8.2) g/dL Albumin (3.5-5.0) g/dL Procalcitonin (0.030-0.080) ng/mL - Radiology Exams Ordered Rad Exams-Entire Visit: Radiology Procedures Category Date Time Status ABDOMEN AND PELVIS W/0 CONTRAS [CT] Stat Exams 10/01/23 19:55 Completed CHEST 1 VIEW (PORTABLE) Urgent Exams 10/02/23 10:23 Completed ECHO W/2D AND DOPPLER [US] Routine Exams 10/03/23 08:00 Taken - Procedures and Test Procedures and Tests throughout Hospitalization: Therapy Orders & Screens 10/02/23 00:12 RT Screen per Nursing Assess ONCE Comment: Protocol Order Physician Instructions: Greater than 3 points order RT Admission Screen Reason For Exam: Triggered on Admission Diagnosis: acute kidney injury Diagnosis: acute kidney injury Pneumonia: No Home O2: Yes Asthma: No CHF: No Home CPAP/BIPAP: Yes Home Nebs/MDI: No Total Points: 10 10/02/23 01:00 BiPap/CPAP ROUTINE Comment: Diagnosis: acute kidney injury Oxygen Nasal Cannula 2 lpm Comment: Diagnosis: acute kidney injury Respiratory Therapy Assessment DAILY Comment: Diagnosis: acute kidney injury 10/02/23 16:00 Incentive Spirometry UD Comment: Diagnosis: vomiting Discharge Exam General Appearance: no apparent distress, alert Neurologic Exam: alert, oriented x 3, cooperative, normal mood/affect, nml cerebellar function, sensation nml, No motor deficits Eye Exam: PERRL, EOMI, eyes nml inspection Ears, Nose, Throat Exam: normal ENT inspection, pharynx normal, moist mucous membranes Neck Exam: normal inspection, non-tender, supple, full range of motion Respiratory Exam: normal breath sounds, lungs clear, No respiratory distress Cardiovascular Exam: regular rate/rhythm, normal heart sounds Gastrointestinal/Abdomen Exam: soft, tenderness (with palpation), distention, No mass Male Genitalia Exam: deferred Rectal Exam: deferred Back Exam: normal inspection, normal range of motion, No CVA tenderness, No vertebral tenderness Extremity Exam: normal inspection, normal range of motion Skin Exam: normal color, warm, dry Final Diagnosis/Problem List - Final Discharge Diagnosis/Problem (1) Gastroenteritis Current Visit: Yes Status: Acute Assessment & Plan: -CT abdomen with no acute findings -Diverticulosis coli without diverticulitis -Supportive therapies with anti-emetics, IVF, APAP -ADAT - gas-x for abd distention Code(s): K52.9 - NONINFECTIVE GASTROENTERITIS AND COLITIS, UNSPECIFIED (2) REBECCA (acute kidney injury) Current Visit: No Status: Acute Assessment & Plan: - resolved with IVF - 2:2 gastroenteritis Code(s): N17.9 - ACUTE KIDNEY FAILURE, UNSPECIFIED (3) Hypertension Current Visit: Yes Status: Acute Assessment & Plan: - home meds held d/t rebecca but resolved - continue home meds today Code(s): I10 - ESSENTIAL (PRIMARY) HYPERTENSION (4) Obesity (BMI 30.0-34.9) Current Visit: Yes Status: Chronic Assessment & Plan: advised heart healthy diet and exercise control Code(s): E66.9 - OBESITY, UNSPECIFIED (5) Dyslipidemia Current Visit: Yes Status: Chronic Assessment & Plan: -continue home atrovastatin Code(s): E78.5 - HYPERLIPIDEMIA, UNSPECIFIED (6) Pleural effusion Current Visit: Yes Status: Resolved Assessment & Plan: - seen in CXR on admission - Lasix IV x1 - resolved per CT results - today room air 95% - Echo EF 62% with pum stenosis Code(s): J90 - PLEURAL EFFUSION, NOT ELSEWHERE CLASSIFIED - Discharge Discharge Date: 10/03/23 Disposition: Home, Self-Care Condition: Stable Prescriptions: Continue Losartan Potassium 100 mg PO DAILY Furosemide 40 mg [Lasix 40 MG] 40 mg PO DAILY Atorvastatin Calcium 40 mg PO DAILY Omeprazole Magnesium [Prilosec Otc] 20 mg PO DAILY Albuterol Sulfate [Proair Respiclick] 1 inh IH DAILY Fluticasone/Umeclidin/Vilanter [Trelegy Ellipta 100-62.5-25] 1 each IH DAILY Follow up with: GUILHERME DYER MD [Family Provider] -
[2023-10-03] MEDS: Mylicon 80MG PO PRN (12:49)
== END 2023-10-03 14:47 | disposition home or self-care (01) ==
LOC: ED 18:04 → MED SURG 23:31
PROVIDERS: ADMIT Internal Medicine; ATTEND Internal Medicine
DX: K52.9 Noninfective gastroenteritis and colitis, unspecified (principal); N17.9 Acute kidney failure, unspecified; I10 Essential (primary) hypertension; E66.9 Obesity, unspecified; E78.5 Hyperlipidemia, unspecified; J90 Pleural effusion, not elsewhere classified; Z79.899 Other long term (current) drug therapy
CPT/HCPCS: 36000; 36415; 71045; 74176; 80048; 80053; 81001; 83036; 83605; 83615; 83690; 83735; 83880; 84145; 84484; 85025; 85027; 85610; 93005; 93306; 94002; 94640; 94660; 96374; 96375; 99285; G0378; J1940; J2405; Q3014; A9270-GY